=== PATIENT | female | born 1965 | race Caucasian/White ===

== ENCOUNTER → 2016-11-04 | Outpatient (REF) | payer OTHER | LOC: M LAB REF 17:07 | PROVIDERS: ATTEND Nurse Practitioner Family | DX: K12.2 Cellulitis and abscess of mouth (principal) ==

== ENCOUNTER 2017-04-29 15:16 | Emergency (ER) | payer OTHER ==
[~2017-04-29] VITALS: Ht 157.5 cm; Wt 61.4 kg
[2017-04-29 15:16] VITALS: BP 127/76
--- NOTE | 2017-04-29 15:56 | REP ---
CT Head without contrast HISTORY: Head injury COMPARISON: 07/30/2006 There is no intraparenchymal hemorrhage, acute infarct, mass or midline shift. The ventricular system is normal in appearance. There is no extra cerebral collection. There is no fracture. The visualized sinuses are clear. IMPRESSION: There is no intracranial lesion. Signed by Romero Silverman MD 04/29/2017 03:48 P
== END 2017-04-29 16:30 | disposition home or self-care (01) ==
LOC: M ED 15:16
DX: S00.93XA Contusion of unspecified part of head, initial encounter (principal); W50.0XXA Accidental hit or strike by another person, initial encounter; Y92.59 Other trade areas as the place of occurrence of the external cause; Y93.89 Activity, other specified; Y99.0 Civilian activity done for income or pay

== ENCOUNTER 2018-05-07 14:58 | Inpatient (IN) | payer OTHER ==
[2018-05-07 16:22] LABS: BASO % 0.5 % (0.0-1.0); EOS # 0.1 10^3/uL (0.0-0.50); EOS % 0.8 % (0.0-3.0); HEMATOCRIT 41.2 % (36.0-47.0); HEMOGLOBIN 13.7 g/dl (12.0-15.5); IMMATURE GRANULOCYTE % 0.3 % (0-3.0); LYMPH # 1.7 10^3/uL (1.5-4.5); LYMPH % 27.1 % (24.0-44.0); MEAN CORPUSCULAR HEMOGLOBIN 30.2 pg (27.0-33.0); MEAN CORPUSCULAR HGB CONC 33.3 g/dl (32.0-36.5); MEAN CORPUSCULAR VOLUME 90.7 fl (80.0-96.0); MONO # 0.4 10^3/uL (0.0-0.8); MONO % 6.3 % (0.0-5.0); NEUTROPHILS # 4.1 10^3/uL (1.8-7.7); PLATELET COUNT, AUTOMATED 256 10^3/uL (150-450); RED BLOOD COUNT 4.54 10^6/uL (4.00-5.40); RED CELL DISTRIBUTION WIDTH 12.4 % (11.5-14.5); WHITE BLOOD COUNT 6.2 10^3/uL (4.0-10.0)
[2018-05-07 16:25] LABS: INR 0.96; PARTIAL THROMBOPLASTIN TIME 26.1 SECONDS (25.4-37.6); PROTHROMBIN TIME 12.9 SECONDS (12.1-14.4)
[2018-05-07 16:28] LABS: CONTROL LINE HCG INT CTR LINE PRESENT; HCG, SERUM QUALITATIVE NEGATIVE (NEGATIVE)
[2018-05-07 16:35] LABS: ANION GAP 7 MEQ/L (8-16); BLOOD UREA NITROGEN 13 MG/DL (7-18); CALCIUM LEVEL 9.2 MG/DL (8.5-10.1); CARBON DIOXIDE LEVEL 30 MEQ/L (21-32); CHLORIDE LEVEL 109 MEQ/L (98-107); CK-MB VALUE MASS < 1.0 NG/ML (<3.6); CPK CREATINE PHOSPHOKINASE 75 U/L (26-192); GLOMERULAR FILTRATION RATE > 60.0 (>51); GLUCOSE, FASTING 112 MG/DL (70-100); MB/CK RELATIVE INDEX 1.33 (< OR =4); POTASSIUM SERUM 4.3 MEQ/L (3.5-5.1); SODIUM LEVEL 146 MEQ/L (136-145); TROPONIN I < 0.02 NG/ML (< 0.10)
[2018-05-07] MEDS: ASPIRIN 325 MG TAB PO (21:45)
[2018-05-07] MEDS: NS 1,000 ML IV (23:52)
[2018-05-07] MEDS: ATORVASTATIN 20 MG TAB PO (23:55)
[2018-05-08 05:33] LABS: ALBUMIN 3.5 GM/DL (3.2-5.2); ALKALINE PHOSPHATASE 57 U/L (45-117); ALT/SGPT 15 U/L (12-78); ANION GAP 7 MEQ/L (8-16); AST/SGOT 9 U/L (7-37); BILIRUBIN,TOTAL 0.4 MG/DL (0.2-1.0); BLOOD UREA NITROGEN 16 MG/DL (7-18); CALCIUM LEVEL 8.4 MG/DL (8.5-10.1); CARBON DIOXIDE LEVEL 28 MEQ/L (21-32); CHLORIDE LEVEL 110 MEQ/L (98-107); CREATININE FOR GFR 0.74 MG/DL (0.55-1.30); GLOMERULAR FILTRATION RATE > 60.0 (>51); GLUCOSE, FASTING 82 MG/DL (70-100); POTASSIUM SERUM 3.5 MEQ/L (3.5-5.1); SODIUM LEVEL 145 MEQ/L (136-145)
[2018-05-08] MEDS: ASPIRIN 81 MG CHEW TABLET PO (08:09)
[2018-05-08] MEDS: FLUBLOK(EGG FREE)(QUAD)INFLUENZA VACC 0.5ML SYRINGE (90682)18YRS&OLDER IM (08:11)
[2018-05-08] MEDS ORDERED: PROHANCE 279.3MG/ML 15ML VIAL (A9576) As Ordered (08:49)
[2018-05-08] MEDS: IBUPROFEN 800 MG TAB PO (14:17)
[2018-05-08] MEDS: ATORVASTATIN 20 MG TAB PO (20:22)
[2018-05-09] MEDS: ASPIRIN 81 MG CHEW TABLET PO (08:23)
[2018-05-09] MEDS ORDERED: SLF 3 ML SYR IV ×2 (09:45→14:00)
[2018-05-09 11:33] LABS: CHOLESTEROL LEVEL 218 MG/DL (<200); CHOLESTEROL RISK RATIO 3.516 (<5); HDL CHOLESTEROL 62 MG/DL (>40); LDL CHOLESTEROL 142 MG/DL (<100); NON-HDL-C 156 MG/DL; TRIGLYCERIDES LEVEL 68 MG/DL (<150)
== END 2018-05-09 10:57 | disposition home or self-care (01) | DRG 103 ==
LOC: M ED 14:58 → M ED INP 22:34 → M PCU 23:39
DX: G43.109 Migraine with aura, not intractable, without status migrainosus (principal); R42 Dizziness and giddiness; M62.81 Muscle weakness (generalized); R20.0 Anesthesia of skin; E78.5 Hyperlipidemia, unspecified; R55 Syncope and collapse

== ENCOUNTER → 2018-05-23 | Outpatient (REF) | payer OTHER ==
[2018-05-23 18:12] LABS: C REACTIVE PROTEIN QUANTITATIV < 0.30 MG/DL (0.00-0.30)
[2018-05-23 18:21] LABS: FOLATE 16.1 NG/ML; VITAMIN B12 LEVEL 727 PG/ML
[2018-05-23 18:25] LABS: ERYTHROCYTE SEDIMENTATION RATE 5 mm/hr (0-30)
[2018-05-26 00:56] LABS: ANTINUCLEAR ANTIBODIES DIRECT Negative (Negative); Lyme Disease IgG/IgM Antibodie <0.91 ISR (0.00-0.90); Lyme Disease IgM Ab Quantitati <0.80 index (0.00-0.79)
== END ==
LOC: M LAB REF 16:16
DX: R53.1 Weakness (principal); R42 Dizziness and giddiness; R73.09 Other abnormal glucose

== ENCOUNTER → 2019-02-05 | Outpatient (REF) | payer OTHER ==
[~2019-02-05] MED LIST: ASPI-286 PO; MOTR200T44 PO
== END ==
LOC: M LAB REF 12:40
PROVIDERS: ATTEND Internal Medicine
DX: R20.2 Paresthesia of skin (principal)

== ENCOUNTER 2019-07-10 19:54 | Emergency (ER) | payer OTHER ==
[~2019-07-10] VITALS: Ht 157.5 cm; Wt 60.0 kg
--- NOTE | 2019-07-10 20:49 | REP ---
Clinical: Trauma. Fall. Technique: AP, lateral, bilateral oblique views of the right wrist. Findings: Comminuted Colles' fracture of the distal radius and small ulnar styloid fracture is appreciated. Evaluation of the carpal bones is limited due to positioning. Impression: Comminuted Colles' fracture of the distal radius. Small ulnar styloid fracture. Electronically Signed by Adolfo Razo MD 07/10/2019 08:40 P
[2019-07-10] MEDS ORDERED: PERCOCET 5MG/325MG TAB PO ONE (21:00)
[2019-07-10] MEDS ORDERED: MORPHINE 4 MG/ML 1ML VIAL/SYRINGE (J2270) IM ONE (21:45)
[2019-07-10] MEDS ORDERED: PERC5TAB12 PO (22:30)
[2019-07-10] MEDS ORDERED: OXYCODONE/APAP 5MG/325MG(BULK FOR ED) 1 TABLET PO ONE (22:30)
[2019-07-10 22:40] VITALS: BP 116/55
--- NOTE | 2019-07-10 23:19 | REPVR ---
PROCEDURE INFORMATION: Exam: CT Right Upper Extremity Without Contrast, Wrist Exam date and time: 07/10/2019 10:29 PM Age: 54 years old Clinical indication: Injury or trauma; Fall; Initial encounter; Blunt trauma (contusions or hematomas; Wrist; Right; Additional info: CT right wrist without TECHNIQUE: Imaging protocol: CT of the Right upper extremity without contrast was performed. Exam focused on the wrist. Radiation optimization: All CT scans at this facility use at least one of these dose optimization techniques: automated exposure control; mA and/or kV adjustment per patient size (includes targeted exams where dose is matched to clinical indication); or iterative reconstruction. COMPARISON: CR Wrist, complete 07/10/2019 8:16 PM FINDINGS: Bones/joints: Comminuted fracture distal radius. There is dorsal tilting of the distal fracture parts. Fracture ulnar styloid. Soft tissues: Diffuse soft tissue edema about the fractures. IMPRESSION: 1. Comminuted fracture distal radius. There is dorsal tilting of the distal fracture parts. 2. Fracture ulnar styloid. Electronically signed by: Daniel Huitron On 07/10/2019 23:19:23 PM
[2019-07-13] MEDS ORDERED: MULTCAP PO (13:30)
[2019-07-13] MEDS ORDERED: tylenol pm PO (13:40)
== END 2019-07-10 22:42 | disposition home or self-care (01) ==
LOC: M ED 19:54
DX: S52.531A Colles' fracture of right radius, initial encounter for closed fracture (principal); S52.614A Nondisplaced fracture of right ulna styloid process, initial encounter for closed fracture; V00.281A Fall from other gliding-type pedestrian conveyance, initial encounter; Y92.89 Other specified places as the place of occurrence of the external cause
CPT/HCPCS: 29125; 73110; 73200; 96372; 99283; J2270

== ENCOUNTER 2019-07-16 11:40 | Day surgery (SDC) | payer OTHER ==
[~2019-07-16] VITALS: Ht 157.5 cm; Wt 61.6 kg
[~2019-07-16 11:40] MED LIST changes: +LIDOCAINE 1% MDV 20ML VIAL SQ PRN; +LR 1,000 ML IV ONE; +MULTCAP PO; +PERC5TAB12 PO; +ceFAZolin SOD 2 GM in IV 1 EA IV ONE; +tylenol pm PO
[2019-07-16] MEDS ORDERED: ROPIvacaine 0.5% 30 ML INJECTION (J2795 PER 1MG) ONE (11:41)
[2019-07-16] MEDS ORDERED: dexameTHASONE 10 MG/1 ML VIAL PRES.FREE (J1100) ONE (11:41)
[2019-07-16] MEDS ORDERED: ROCURONIUM BROMIDE 50 MG/5 ML VIAL As Ordered ONE (12:19)
[2019-07-16] MEDS ORDERED: LIDOCAINE 2% INJ 100 MG/5 ML SDV (FOR ANES.) As Ordered ONE (12:19)
[2019-07-16] MEDS ORDERED: PROPOFOL 200 MG/20 ML VIAL As Ordered ONE (12:19)
[2019-07-16] MEDS ORDERED: fentaNYL 250 MCG/5 ML INJECTION (J3010) As Ordered ONE (12:20)
[2019-07-16] MEDS ORDERED: MIDAZOLAM INJ 2 MG/2 ML VIAL (J2250) As Ordered ONE ×2 (12:20→12:37)
[2019-07-16] MEDS ORDERED: fentaNYL 100 MCG/2 ML INJECTION (J3010) As Ordered ONE (12:37)
[2019-07-16] MEDS ORDERED: SCOPOLAMINE 1MG TRANSDERMAL PATCH As Ordered ONE (12:45)
[2019-07-16] MEDS: MIDAZOLAM INJ 2 MG/2 ML VIAL (J2250) IV SCH ×2 (12:52→12:54)
[2019-07-16] MEDS ORDERED: SCOPOLAMINE 1MG TRANSDERMAL PATCH TOP ONE (13:00)
[2019-07-16] MEDS ORDERED: fentaNYL 100 MCG/2 ML INJECTION (J3010) IV ONE (13:30)
[2019-07-16] MEDS ORDERED: dexameTHASONE 4 MG/ML 1ML VIAL (J1100) As Ordered ONE (14:05)
[2019-07-16] MEDS ORDERED: ONDANSETRON 4MG/2ML VIAL (J2405) As Ordered ONE ×2 (14:05→15:34)
[2019-07-16] MEDS ORDERED: ACETAMINOPHEN *IV* 1,000 MG IV ONE ×2 (15:32)
[2019-07-16] MEDS ORDERED: ACETAMINOPHEN 1000MG 100ML IV BTL (OFIRMEV) (J0131 PER 10MG) As Ordered ONE (15:34)
[2019-07-16] MEDS: fentaNYL 100 MCG/2 ML INJECTION (J3010) IV PRN ×4 (15:35→15:50)
--- NOTE | 2019-07-16 15:57 | REP ---
Right wrist: Two views intra. History: ORIF. 86 seconds of fluoroscopy time is reported. Findings: A sequence of two last image hold fluoroscopically obtained spot radiographs of the right distal forearm and wrist document open reduction internal fixation of the distal radius. Electronically Signed by Gurmeet Wallace MD 07/16/2019 03:48 P
[2019-07-16] MEDS ORDERED: MORPHINE 10 MG/ML 1ML VIAL (J2270) As Ordered ONE (15:59)
[2019-07-16] MEDS: MORPHINE 2 MG/ML 1ML VIAL (J2270) IV PRN ×4 (16:00→16:30)
[2019-07-16] MEDS: LR 1,000 ML IV SCH ×2 (16:00→23:46)
[2019-07-16] MEDS ORDERED: ONDANSETRON 4MG/2ML VIAL (J2405) IV PRN ×2 (16:00)
[2019-07-16] MEDS ORDERED: ACETAMINOPHEN TAB 650MG DOSE (2X325MG) PO PRN (16:00)
[2019-07-16] MEDS ORDERED: MORPHINE 2 MG/ML 1ML VIAL (J2270) IV PRN (16:00)
[2019-07-16] MEDS ORDERED: LR 1,000 ML IV SCH (16:00)
[2019-07-16] MEDS ORDERED: METOCLOPRAMIDE INJ 10MG/2ML VIAL (J2765) As Ordered ONE (16:04)
[2019-07-16] MEDS ORDERED: METOCLOPRAMIDE INJ 10MG/2ML VIAL (J2765) IV SCH (16:30)
[2019-07-16] MEDS ORDERED: PROMETHAZINE INJ 25 MG/ML VIAL (J2550) As Ordered ONE (17:35)
--- NOTE | 2019-07-16 17:35 | RO ---
DATE OF PROCEDURE: 07/16/2019 PREOPERATIVE DIAGNOSIS: Right distal radius fracture. POSTOPERATIVE DIAGNOSIS: Right distal radius fracture. PLANNED PROCEDURE: Right distal radius open reduction internal fixation. PROCEDURE PERFORMED: Right distal radius open reduction internal fixation. SURGEON: Dr. Matt Powers ELECTRICIAN MANAGER: Xiomara Calero. ANESTHESIA: Dr. Aragon general anesthetic plus block. OPERATIVE PREAMBLE: This 54-year-old female fell on a hover board. She sustained a comminuted right distal was fracture. The talked about the pros, cons and risks and benefits of going ahead with open reduction internal fixation versus nonsurgical management and she wished to go ahead with surgery. I reiterated these risk preoperative holding and removed the splint and marked her right upper extremity and we proceeded with surgery. The patient was brought to operating room 3 theater. Two grams IV Ancef was administered. She was placed supine on the operating room table with arm table to the right side. 18 inches tourniquet was applied and appropriately padded. SCDs were used. All bony prominences were properly padded. General anesthesia was induced. Two grams IV Ancef was administered prior to the start of the skin incision. The bed was turned 90 degrees and operative mini C-arm was utilized. Preop time-out was performed confirming the side, patient and surgery. Limb was prepped and draped the usual sterile fashion along ample time of 3 minutes for the prep solution to thoroughly dry. Sterile Esmarch was used to exsanguinate the limb. Limb was elevated and tourniquet was inflated to 250 mmHg. Tourniquet was taken down prior to the end of the case. Total tourniquet time approximately 60 minutes. We began by making a 4 inch incision centered over the FCR to the right wrist. the right wrist.. This dissection down skin saphenous tissue to put it to meticulous hemostasis. The fascia overlying the FCR retracted laterally. Mobilized muscle belly of FPL. Protected the radial neurovascular bundle throughout the case. I used a periosteal elevator to elevate the muscle belly from the volar aspect of the distal radius proximally as well as distally over the fracture site. I identified at least three fragments. One being the most radial side as well as the radial styloid and two intraarticular fragments as well as dorsal comminution. I used finger traps with 10 pounds of traction. A small bump put under the dorsal side of the distal radius, I rolled up a green towel to achieve proper reduction. Took intraoperative AP, lateral, and true lateral 30 degree tilt views. I selected 3 hole proximal [employer] volar distal radius fracture plate. I secured this down to bone with 1.6 mm K-wires. Fluoroscopy to ensure this probably positioned. Secured it down to bone using a 2.7 mm fully-threaded cortical screw. This measured 14 mm. Secured the plate nicely down to the bone. Then used a little bit of more traction and manual manipulation as well as ulnar deviation of the wrist and dorsal pressure to achieve reduction. I temporarily pinned this in place. The direction appeared nicely out to length in the articular surface. It was congruent with normal radial inclination. As such I into the distal 2.4 mm variable locking screws. I used three 20 mm long and three 22 mm long screws for six screw holes. I took a true lateral 30 degree tilt to ensure that they were out of the joint. I then filled the remaining two screws proximally with two 12 mm cortical 2.7 mm non-locking screws. I took final radiographs. Reduction appeared good. The hardware still has some comminution. Wounds thoroughly irrigated. Tourniquet taken down. Hemostasis achieved. Subcutaneous tissue was closed with interrupted 3-0 Vicryl. Skin was closed with running 3-0 Monocryl. Steri-strips were applied followed by adaptic, 4 x 8 gauze and ABD dressing was overwrapped with sterile cast padding. A volar plaster splint and overwrapped sterile FRANKIE bandage The patient woken up from general anesthetic. Sponge, needle, instruments counts were correct. ESTIMATED BLOOD LOSS: 100 mL. PLAN: The patient will be nonweightbearing upper extremity and start finger range of motion. Change the splint in 2 weeks. See me in followup in the clinic. Prescription be sent to the pharmacy of choice electronically. She may be discharged home according to the day surgery criteria. I spoke with her , Wolf after the procedure. I told him about the plan and encouraged him to let Rae know to elevate her upper extremity.
[2019-07-16] MEDS ORDERED: PERCOCET 5MG/325MG TAB PO ONE (18:00)
[2019-07-16] MEDS ORDERED: PROMETHAZINE INJ 25 MG/ML VIAL (J2550) IV ONE (18:00)
[2019-07-16 20:00] VITALS: BP 105/50
[2019-07-16 20:40] VITALS: BP 115/70
[2019-07-16 21:40] VITALS: BP 102/68
[2019-07-16 22:40] VITALS: BP 110/67
[2019-07-16 23:40] VITALS: BP 106/70
[2019-07-17] MEDS: PERCOCET 5MG/325MG TAB PO PRN ×2 (03:51→08:27)
[2019-07-17] MEDS ORDERED: PERC5TAB12 PO (05:47)
--- NOTE | 2019-07-17 07:36 | IPN ---
DATE: 07/17/2019 CHIEF COMPLAINT: Postoperative day one right wrist open reduction internal fixation. HISTORY OF PRESENT ILLNESS: This is a 54-year-old female who had a right wrist fracture. I performed ORIF yesterday afternoon. She is experiencing high levels of pain so she elected to stay overnight. This morning, she is comfortable. She did take one oral Percocet. Otherwise, she is feeling comfortable. PHYSICAL EXAMINATION: Well appearing, 54-year-old female who appears in no acute distress. Decreased sensation to the fingers. Had a block, but the fingers are warm and well perfused. Splint is in situ. Ice bag is in place. Arm is elevated appropriately. ASSESSMENT AND PLAN: This is a 54-year-old female who can be discharged home today when she is comfortable. Prescription is called into her pharmacy. Followup in the office within a few days if she wishes to debulk the dressing, otherwise followup in two weeks time. JOE
== END 2019-07-17 09:00 | disposition home or self-care (01) ==
LOC: M SDC 11:40 → M MS5PR 19:52 → M SDC 07-17 09:00
PROVIDERS: ATTEND Orthopaedic Surgery Sports Medicine
DX: S52.501A Unspecified fracture of the lower end of right radius, initial encounter for closed fracture (principal); V00.181A Fall from other rolling-type pedestrian conveyance, initial encounter; Y92.89 Other specified places as the place of occurrence of the external cause; Y93.89 Activity, other specified; Y99.9 Unspecified external cause status; F41.9 Anxiety disorder, unspecified
CPT/HCPCS: 25609; 64418; 76000; 81025; 96374; C1713; J0131; J0690; J1100; J2250; J2270; J2405; J2765; J2795; J3010

== ENCOUNTER → 2019-12-19 | Outpatient (REF) | payer OTHER ==
[~2019-12-19] MED LIST changes: -LIDOCAINE 1% MDV 20ML VIAL SQ PRN; -LR 1,000 ML IV ONE; -ceFAZolin SOD 2 GM in IV 1 EA IV ONE
[2019-12-19 16:55] LABS: C REACTIVE PROTEIN QUANTITATIV < 0.30 MG/DL (0.00-0.30); LIPASE 448 U/L (73-393)
== END ==
LOC: M LAB REF 13:49
PROVIDERS: ATTEND Internal Medicine
DX: R10.9 Unspecified abdominal pain (principal); R19.7 Diarrhea, unspecified

== ENCOUNTER → 2020-01-04 | Outpatient (REF) | payer OTHER | LOC: M LAB REF 16:41 | PROVIDERS: ATTEND Internal Medicine | DX: R19.7 Diarrhea, unspecified (principal); R10.9 Unspecified abdominal pain ==

== ENCOUNTER → 2020-06-25 | Outpatient (CLI) | payer SELFPAY | LOC: M LABSMTC 09:39 | PROVIDERS: ATTEND Pediatrics | DX: Z20.828 Contact with and (suspected) exposure to other viral communicable diseases (principal) ==

== ENCOUNTER → 2020-07-15 | Outpatient (CLI) | payer SELFPAY | LOC: M LABSMTC 13:21 | PROVIDERS: ATTEND Pediatrics | DX: Z20.822 Contact with and (suspected) exposure to COVID-19 (principal) ==

== ENCOUNTER → 2020-08-03 | Outpatient (CLI) | payer OTHER, SELFPAY ==
[~2020-08-03] MED LIST changes: +MELA3TAB30 PO; +VITMTA PO
== END ==
LOC: M LABSMTC 08:11
PROVIDERS: ATTEND Anesthesiology
DX: Z01.812 Encounter for preprocedural laboratory examination (principal); Z20.822 Contact with and (suspected) exposure to COVID-19

== ENCOUNTER 2020-08-08 07:25 | Day surgery (SDC) | payer OTHER ==
[~2020-08-08] VITALS: Ht 157.5 cm; Wt 57.6 kg
[~2020-08-08 07:25] MED LIST changes: +LIDOCAINE 2% 100MG/5ML SDV (FOR ANES.) As Ordered ONE; +propofoL 200 MG/20 ML VIAL As Ordered ONE
--- OUTSIDE RECORDS SUMMARY | 2020-08-08 07:29 | CCD | Continuity of Care Document ---
Author Author Rae Ware M.D. Organization Unknown Address [address] [place] [address] Phone [phone] Care Team Providers Care Admissions Coordinator Name Role Phone Aguirre, Eula CORRALES AUTM [phone] Zo Ware MD AUTM [phone] Problems Active Problems Provider Date Keila Crandall FNP Onset: 04/11/2011 Vitamin D deficiency Zo Ware M.D. Onset: 04/11/20 11 Migraine with typical aura Zo Ware M.D. Onset: Social History Type Date Description Comments Sex Unknown ETOH Use Occasionally consumes alcohol Tobacco Use Start: Unknown Patient has never smoked Allergies, Adverse Reactions, Alerts Description No Known Drug Allergies Medications Active Medications SIG Qnty Indications Ordering Provide r Date Metamucil 28.3% Powder 1-2 tablespoon every morning as tolerated 1150gm Celeste Napoles 04/23/2020 Bone Health qd Zo Ware M.D. 04/23/2020 Ibu-200 200mg Tablets 3 three times a day as needed head ache Zo Ware M.D. 05/11 Saline Nasal [place] 0.65% Solution 3-4x/d as directed 1units Zo Ware M.D. 05/22/20 19 [place] 3 500 500mg Capsules ev sylvie day Zo Ware M.D. 02/05/2019 Vitamin D 2000Unit Capsules 1 po qd Zo Ware M.D. 07/27/2013 MV-One Capsules qd 90caps Zo Ware M.D. 04/15/2011 Valtrex 1gm Tabs take 2 tablets by mouth two times a day for 1 day 30tabs Otto Napoles 10/16/2007 Probiotic Capsules 1 by mouth every day Unknown Medications Administered in Office Medication SIG Qnty Indications Ordering Provider Date Immunization Adminstration,1 Vaccine/Tox oid Injection Zo Ware M.D. 04/10 Immunization Adminstration,1 Vaccine/Tox oid Injection Zo Ware M.D. 05/11 Immunizations CPT Code Status Date Vaccine Lot # [id number] Given 04/23/2020 Influenza Vaccin e Quadrivalent Preser/Antibiotic Free Im Use [id number] Given 05/22/2019 Influenza Vaccin e Quadrivalent Preser/Antibiotic Free Im Use 995639 U-Flu Given 05/08/2018 Influenza,Unspecified Q2037 Given 04/30/2014 Fluvirin Virus Vaccine [id number] 21 Q2037 Given 07/23/2013 Fluvirin Virus Vaccine [id number] 01 Q2037 Refused 04/15/2011 Fluvirin Virus Vaccine Vital Signs Date Vital Result Comment 04/23/2020 11:07am BP Systolic 110 mmHg BP Diastolic 72 mmHg Heart Rate 64 /min Height 61.75 inches 5'1.75" Weight 128.00 lb BMI (Body Mass Index) 23.6 kg/m2 01/22/2020 2:34pm BP Systolic 120 mmHg BP Diastolic 68 mmHg Heart Rate 67 /min Height 61.75 inches 5'1.75" Weight 134.00 lb O2 % BldC Oximetry 95 % BMI (Body Mass Index) 24.7 kg/m2 Results Test Acquired Date Facility Test Result H/L Range Note Coronavirus 2018 ([facility]) 06/25/[address] [id number] [phone] Coronavirus 2018 ([facility]) <SEE NOTE> 1 Laboratory test finding 01/22/2020 [facility] [address] [place], [place] [id number] [phone] Lipase 356 U/L Normal 73-393 Laboratory test finding 01/04/2020 [place] [id number] [phone] Tissue Transglutaminase IgA <2 U/mL Normal 0-3 2 Immunoglobulin A 128.0 mg/dL Normal 70-400 1 Test: COVID-19 Nasal/Naspharynx Result: NOT DETECTED Reference Units: Not detected Note: Please consider re-collection of a new specimen, if clinically indicated. Note: The COVID-19 assay is under Emergency Use Authorization(EUA) by the U.S. Food and Drug Administration. [facility] is designated as a high complexity laboratory by the Clinical Laboratory Improvement Amendments of 1988(CLIA) and is qualified to perform this test. ASSAY INFORMATION: Real Time RT-PCR 2 Negative 0 - 3 Weak Positive 4 - 10 Positive >10 . Tissue Transglutaminase (tTG) has been identified as the endomysial antigen. Studies have demonstr- ated that endomysial IgA antibodies have over 99% specificity for gluten sensitive enteropathy. Performed at: RN - [facility] [address] [id number] Administration Physician: Leny Sierra MD, Phone: [phone] Procedures Date Code Description Status 04/10/2020 [id number] Mammogram Completed 03/02/2018 [id number] Mammogram Completed 02/15/2017 [id number] Mammogram Completed 11/26/2015 [id number] Mammogram Completed 04/21/2015 [id number] Colonoscopy Completed 10/01/2013 [id number] Mammogram Completed 09/13/2012 [id number] Mammogram Completed 11/26/2011 [id number] Colonoscopy Completed 2011 [id number] Mammogram Completed 05/27/2010 [id number] Mammogram Completed 12/15/2004 [id number] Colonoscopy Completed Medical Devices Description No Information Available Encounters Type Date Location Provider Dx Diagnosis Office Visit 04/23/2020 10:45a [facility], PRachaelCRachael Ware M.D. Z00.00 Encntr for general adult med ical exam w/o abnormal findings K58.2 Mixed irritable bowel syndro me M85.80 Oth disrd of bone density an d structure, unspecified site M25.531 Pain in right wrist G47.00 Insomnia, unspecified B00.1 Herpesviral vesicular dermat itis Z80.3 Family history of malignant neoplasm of breast Z80.0 Family history of malignant neoplasm of digestive organs N95.1 Menopausal and female climac teric states Z23 Encounter for immunization Office Visit 01/22/2020 2:30p [facility] M.[facility] K30 Functional dyspepsia G90.50 Complex regional pain syndro me I, unspecified G43.909 Migraine, unsp, not intracta ble, without status migrainosus N95.1 Menopausal and female climac teric states Assessments Date Code Description Provider 04/23/2020 Z00.00 Encounter for genera l adult medical examination without abnormal findings Zo Ware M.D. 04/23/2020 K58.2 Mixed irritable bowel syndrome Sharonda Ware M.D. 04/23/2020 M85.80 Other specified diso rders of bone density and structure, unspecified site Zo Ware M.D. 04/23/2020 M25.531 Pain in right wrist Zo rodarte M.D. 04/23/2020 G47.00 Insomnia, unspecified Zo espinoza M.D. 04/23/2020 B00.1 Herpesviral vesicular dermatitis Zo Ware M.D. 04/23/2020 Z80.3 Family history of malignant neop lasm of breast Zo Ware M.D. 04/23/2020 Z80.0 Family history of malignant neop lasm of digestive organs Zo Ware M.D. 04/23/2020 N95.1 Menopausal and female climacteri c states Zo Ware M.D. 04/23/2020 Z23 Encounter for immunization Zo Ware M.D. 01/22/2020 K30 Functional dyspepsia Zo Brand M.D. 01/22/2020 G90.50 Complex regional pain syndrome I , unspecified Zo Ware M.D. 01/22/2020 G43.909 Migraine, unspecifie d, not intractable, without status migrainosus Zo Ware M.D. 01/22/2020 N95.1 Menopausal and female climacteri c states Zo Ware M.D. 01/04/2020 R19.7 Diarrhea, unspecified Zo espinoza M.D. 01/04/2020 R19.7 Diarrhea, unspecified [facility] 01/04/2020 R10.9 Unspecified abdominal pain Zo Ware M.D. 01/04/2020 R10.9 Unspecified abdominal pain Lab S chedule Plan of Treatment Future Appointment(s):* 08/25/2020 11:00 am - Zo [facility] M.D. at [facility] 04/23/2020 - Zo Ware M.D.* Z00.00 Encounter for general adult medical examination without abnormal findings * K58.2 Mixed irritable bowel syndrome * M85.80 Other specified disorders of bone density and structure, unspecified site * M25.531 Pain in right wrist * G47.00 Insomnia, unspecified * B00.1 Herpesviral vesicular dermatitis * Z80.3 Family history of malignant neoplasm of breast * Z80.0 Family history of malignant neoplasm of digestive organs * N95.1 Menopausal and female climacteric states * Z23 Encounter for immunization * All * New Medication:* Metamucil 28.3 % - 1-2 tablespoon every morning as tolerated * Bone Health - qd * Comments:* 9. Post concussive syndrome. Question how many of her symptoms are related to perimenopause. Following with Dr. Bermudez.10. Varicose veins. Conservative advice.11. Migraines. Stable.12. Health maintenance. Flu shot is administered today. Colonoscopy is about to be done. She just had her mammogram, bone density and I'm requesting these. 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 Her Adacel was 2013. Diet/exercise, Calcium, BSE reviewed. Functional Status Description No Information Available Mental Status Description No Information Available Referrals Description No Information Available
--- OUTSIDE RECORDS SUMMARY | 2020-08-08 07:29 | CCD | Continuity of Care Document ---
Author Author Rae Ware M.D. Organization Unknown Address [address] [place] [address] Phone [phone] Care Team Providers Care Banquet Houseperson Name Role Phone Aguirre, Eula CORRALES AUTM [phone] Zo Ware MD AUTM [phone] Problems Active Problems Provider Date Keila Crandall [...] ache Zo Ware M.D. 05/11 Saline Nasal [place] 0.65% Solution 3-4x/d as directed 1units Zo Ware M.D. 05/22/20 19 [place] 3 500 500mg Capsules ev sylvie day [...] CPT Code Status Date Vaccine Lot # 45613 Given 04/23/2020 Influenza Vaccin e Quadrivalent Preser/Antibiotic Free Im Use [id number] 74511 Given 05/22/2019 Influenza Vaccin e Quadrivalent Preser/Antibiotic Free Im Use 266902 U-Flu Given 05/08/2018 Influenza,Unspecified Q2037 Given 04/30/2014 Fluvirin Virus Vaccine 61887 21 Q2037 Given 07/23/2013 Fluvirin Virus Vaccine 45444 01 Q2037 Refused 04/15/2011 Fluvirin Virus Vaccine [...] Date Facility Test Result H/L Range Note Laboratory test finding 01/22/2020 [facility] [address] [place] [address] [phone] Lipase 356 U/L Normal 73-393 Laboratory test finding 01/04/2020 [facility] [address] [place] [address] [phone] Tissue Transglutaminase IgA <2 U/mL Normal 0-3 1 Immunoglobulin A 128.0 mg/dL Normal 70-400 Gastrointestinal (GI) Panel 12/19/2019 [facility] [address] [place] [address] [phone] Gastrointestinal (GI) Panel This Gastrointes <SEE NOTE > 2 Laboratory test finding 12/19/2019 [facility] [address] [place], [place] [id number] [phone] C Reactive Protein Quantitativ < 0.30 mg/dL Normal 0.00-0.30 Lipase 448 U/L High 73-393 Complete Blood Count 12/19/2019 [facility] [employer] [facility] Mud Grinder: [place] [address] [phone] WBC 4.2 x10*3/UL 4.1 - 10.9 RBC 4.49 x10*6/UL 4.20 - 6.30 Hemoglobin 13.6 g/dL 12.0 - 18.0 Hematocrit 39.6 % 37.0 - 51.0 MCV 88.3 fL 80.0 - 97.0 MCH 30.4 pg 26.0 - 32.0 MCHC 34.4 g/dL 31.0 - 38.0 RDW 12.6 % 11.6 - 13.7 PLT 241 x10*3/UL 140 - 440 MPV 9.3 FL 7.8 - 11.0 Lymph % 41.0 % 10.0 - 58.5 Mid % 9.6 % High 1.7 - 9.3 Neut % 49.4 % 37.0 - 92.0 Lymph # 1.7 x10*3/UL 0.6 - 4.1 Mid # 0.4 x10*3/UL 0.1 - 0.6 Neut # 2.1 x10*3/UL 2.0 - 7.8 Laboratory test finding 12/19/2019 [place] [employer] sandra lopez Mud Grinder: [place] [address] [phone] Sed Rate 7 mm/hr 0 - 15 Magnesium 2.2 mg/dL 1.8 - 2.4 Comprehensive Chem Profile 12/19/2019 [facility] ortiz Mud Grinder: [place] [address] [phone] Glucose 91 mg/dL 74 - 99 3 BUN 22 mg/dL High 7 - 18 Creatinine 0.8 mg/dL 0.6 - 1.3 Sodium 142 mEq/L 136 - 145 Potassium 4.2 mEq/L 3.5 - 5.1 Chloride 105 mEq/L 98 - 107 Carbon Dioxide 29 mEq/L 21 - 32 Calcium 9.1 mg/dL 8.5 - 10.1 Alk. Phosphatase 69 mg/dL 46 - 116 Total Bilirubin 0.6 mg/dL 0.2 - 1.0 Ast (Sgot) 12 U/L Low 15 - 37 Alt (SGPT) 19 U/L 12 - 78 Albumin 4.2 g/dL 3.4 - 5.0 Total Protein 7.4 g/dL 6.4 - 8.2 A/G Ratio 1.31 CALC 1.00 - 1.90 GFR >= 60 mL/min >60 GFR >= 60 mL/min >60 4 Laboratory test finding 12/19/2019 [facility] [employer] [facility] Mud Grinder: [place] [address] [phone] Thyroid Stimulating Hormone 1.40 uIU/mL 0.3 6 - 3.74 1 Negative 0 - 3 Weak Positive 4 - 10 Positive >10 . Tissue Transglutaminase (tTG) has been identified as the endomysial antigen. Studies have demonstr- ated that endomysial IgA antibodies have over 99% specificity for gluten sensitive enteropathy. Performed at: [facility] [address] [id number] Mud Grinder: Leny Sierra MD, Phone: [phone] 2 This Gastrointestinal PCR Pa paty detects the following bacteria, parasites and viruses: Campylobacter (jejuni, coli and upsaliensis), Clostridium difficile (toxin A/B), Plesiomonas shigelloides, Salmonella, Yersinia enterocolitica, Vibrio (parahaemolyticus, vulnificus and cholerae), Vibrio clolerae, Enteroaggregative E. coli (EAEC), Enteropathogenis E. coli (EPEC), Enterotoxigenic E. coli (ETEC) it/st, Shiga-like producing E. coli (STEC) stx1/stc2, E.coli O157, Shigella/Enteroinvasive E. coli (EIEC), Cryptosporidium, Cyclospora cayetanensis, Entamoeba histolytica, Giardia lamblia, Adenovirus F 40/41, Astrovirus, Norovirus GI/GII, Rotavirus A and Sapovirus (I, II, IV, V). NEGATIVE by MULTIPLEXED NUCLEIC ACID PCR 3 100-125 mg/dL PRE-DIABET ES/FASTING >126 mg/dL DIABETES/FASTING 4 CHRONIC KIDNEY DISEASE STAGI NG PER NKF STAGE I & II GFR >= 60 NORMAL TO MILDLY DECREASED STAGE III GFR 30-59 MODERATELY DECREASED STAGE IV GFR 15-29 SEVERELY DECREASED STAGE V GFR <15 VERY LITTLE GFR LEFT ESRD GFR <15 ON RESCUE INSTRUCTOR Procedures Date Code Description Status 04/10/2020 [id number] Mammogram Completed 03/02/2018 [id number] Mammogram Completed 02/15/2017 [id number] Mammogram Completed 11/26/2015 [id number] Mammogram Completed 04/21/2015 [id number] Colonoscopy Completed 10/01/2013 [id number] Mammogram Completed 09/13/2012 [id number] Mammogram Completed 11/26/2011 [id number] Colonoscopy Completed 2011 [id number] Mammogram Completed 05/27/2010 [id number] Mammogram Completed 12/15/2004 [id number] Colonoscopy Completed Medical Devices Description No Information Available Encounters Type Date Location Provider Dx Diagnosis Office Visit 04/23/2020 10:45a [facility] P.CRachael Ware M.D. Z00.00 Encntr for general adult [...] Encounter for immunization Office Visit 01/22/2020 2:30p [facility].CR[facility]ael Ware M.D. K30 Functional dyspepsia G90.50 Complex regional pain syndro me I, unspecified G43.909 Migraine, unsp, not intracta ble, without status migrainosus N95.1 Menopausal and female climac teric states Office Visit 12/19/2019 11:15a [facility] oJe Ware M.D. R10.9 Unspecified abdominal pain R19.7 Diarrhea, unspecified Assessments Date Code Description Provider 04/23/2020 Z00.00 Encounter for genera l adult medical examination without abnormal findings Zo Ware M.D. 04/23/2020 K58.2 Mixed irritable bowel syndrome J enoc Ware M.D. 04/23/2020 M85.80 Other specified diso [...] R10.9 Unspecified abdominal pain Lab S chedule 12/19/2019 R10.9 Unspecified abdominal pain Zo Ware M.D. 12/19/2019 R19.7 Diarrhea, unspecified Zo espinoza M.D. Plan of Treatment Future Appointment(s):* 08/25/2020 11:00 am - Zo Ware [facility]. at [facility] 04/23/2020 - Zo Ware [...] requesting these. 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 Her Adacel was 2013. Diet/exercise, Calcium, BSE reviewed. Functional Status Description No Information Available Mental Status Description No Information Available Referrals Refer to Reason for Referral Status Appt Date Telly Ibrahim MD CONSULT FOR ABD PAIN, CHANGE IN BOWELS, PT IS SCHEDULED FOR CT ABD/PELVIS AT [facility] ON 12/27/19 PLEASE SCHEDULE KAREN.PER DR WARE Sent [facility] Medical Practice [address] [address] [phone]
--- OUTSIDE RECORDS SUMMARY | 2020-08-08 07:29 | CCD | Continuity of Care Document ---
Author Author Rae Ware M.D. Organization Unknown Address [address] [place] [id number] Phone [phone] Care Team Providers Care Mud Analysis Well Logging Captain Name Role Phone Aguirre, Eula ANTONI AUTM [phone] Zo Ware MD AUTM [phone] Problems Active Problems Provider Date Keila Crandall [...] ache Zo Ware M.D. 05/11 Saline Nasal [place] 0.65% Solution 3-4x/d as directed 1units Zo Ware M.D. 05/22/20 19 [place] 3 500 500mg Capsules ev sylvie day [...] CPT Code Status Date Vaccine Lot # [id number] Given 04/23/2020 Influenza Vaccin e Quadrivalent Preser/Antibiotic Free Im Use [id number] Given 05/22/2019 Influenza Vaccin e Quadrivalent Preser/Antibiotic Free Im Use 138251 U-Flu Given 05/08/2018 Influenza,Unspecified Q2037 Given 04/30/2014 Fluvirin Virus Vaccine 41256 21 Q2037 Given 07/23/2013 Fluvirin Virus Vaccine 85567 01 Q2037 Refused 04/15/2011 Fluvirin Virus Vaccine [...] Test Result H/L Range Note Coronavirus 2018 ([facility]) 07/15/[address] [address] [phone] Coronavirus 2019 ([facility]) <SEE NOTE> 1 Coronavirus 2019 ([facility]) 06/25/[address] [address] [phone] Coronavirus 2019 ([facility]) <SEE NOTE> 2 Laboratory test finding 01/22/[address] [address] [phone] Lipase 356 U/L Normal 73-393 1 Test: COVID-19 Nasal/Naspharynx Result: NOT DETECTED Reference Units: Not detected Note: Please consider re-collection of a new specimen, if clinically indicated. Note: The COVID-19 assay is under Emergency Use Authorization(EUA) by the U.S. Food and Drug Administration. [facility] is designated as a high complexity laboratory by the Clinical Laboratory Improvement Amendments of 1988(CLIA) and is qualified to perform this test. ASSAY INFORMATION: Real Time RT-PCR 2 Test: COVID-19 Nasal/Naspharynx Result: NOT DETECTED Reference Units: Not detected Note: Please consider re-collection of a new specimen, if clinically indicated. Note: The COVID-19 assay is under Emergency Use Authorization(EUA) by the U.S. Food and Drug Administration. [facility] is designated as a high complexity laboratory by the Clinical Laboratory Improvement Amendments of 1988(CLIA) and is qualified to perform this test. ASSAY INFORMATION: Real Time RT-PCR Procedures Date Code Description Status 04/10/2020 [id number] Mammogram Completed 03/02/2018 [id number] Mammogram Completed 02/15/2017 [id number] Mammogram Completed 11/26/2015 [id number] Mammogram Completed 04/21/2015 [id number] Colonoscopy Completed 10/01/2013 [id number] Mammogram Completed 09/13/2012 [id number] Mammogram Completed 11/26/2011 [id number] Colonoscopy Completed 2011 [id number] Mammogram Completed 05/27/2010 [id number] Mammogram Completed 12/15/2004 [id number] Colonoscopy Completed Medical Devices Description No Information Available Encounters Type Date Location Provider Dx Diagnosis Office Visit 04/23/2020 10:45a [facility] Joe Ware M.D. Z00.00 Encntr for general adult [...] Encounter for immunization [facility] 2[facility] K30 Functional dyspepsia G90.50 [...] female climacteri c states Zo Ware M.D. Plan of Treatment Future Appointment(s):* 08/25/2020 11:00 am - Zo Ware M.D. at [facility] 04/23/2020 - Zo Ware M.D.* Z00.00 [...] requesting these. She sees Dr. Bermudez for [employer] SUPER[employer]OR care. Her Adacel was 2013. Diet/exercise, Calcium, BSE reviewed. Functional Status Description No Information Available Mental Status Description No Information Available Referrals Description No Information Available
--- OUTSIDE RECORDS SUMMARY | 2020-08-08 07:30 | CCD ---
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 Name Role Phone Lonny Ware MD Unavailable Unavailable Lonny Ware MD Unavailable Unavailable Lonny Ware MD Unavailable Unavailable Lonny Ware MD Unavailable Unavailable Lonny Ware MD Unavailable Unavailable Lonny Ware MD Unavailable Unavailable Lonny Ware MD Unavailable Unavailable Lonny Ware MD Unavailable Unavailable Lonny Ware MD Unavailable Unavailable Lonny Ware MD Unavailable Unavailable Lonny Ware MD Unavailable Unavailable Lonny Ware MD Unavailable Unavailable Lonny Ware MD Unavailable Unavailable Lonny Ware MD Unavailable Unavailable Lonny Ware MD Unavailable Unavailable Lonny Ware MD Unavailable Unavailable Lonny Ware MD Unavailable Unavailable Lonny Ware MD Unavailable Unavailable Lonny Ware MD Unavailable Unavailable Lonny Ware MD Unavailable Unavailable Lonny Ware MD Unavailable Unavailable Lonny Ware MD Unavailable Unavailable Lonny Ware MD Unavailable Unavailable Lonny Ware MD Unavailable Unavailable Lonny Ware MD Unavailable Unavailable Lonny Ware MD Unavailable Unavailable Lonny Ware MD Unavailable Unavailable Lonny Ware MD Unavailable Unavailable ChazLonny MD Unavailable Unavailable ChazLonny rodarte MD Unavailable Unavailable ChazLonny lowry MD Unavailable Unavailable ChazLonny MD Unavailable Unavailable ChazLonny MD Unavailable Unavailable ChazLonny MD Unavailable Unavailable ChazLonny MD Unavailable Unavailable ChazLonny rodarte MD Unavailable Unavailable ChazLonny MD Unavailable Unavailable Lonny Ware MD Unavailable Unavailable ChazLonny MD Unavailable Unavailable ChazLonny MD Unavailable Unavailable ChazLonny MD Unavailable Unavailable ChazLonny rodarte MD Unavailable Unavailable ChazLonny MD Unavailable Unavailable ChazLonny MD Unavailable Unavailable ChazLonny MD Unavailable Unavailable ChazLonny rodarte MD Unavailable Unavailable ChazLonny MD Unavailable Unavailable Lonny Ware MD Unavailable Unavailable Lonny Ware MD Unavailable Unavailable Lonny Ware MD Unavailable Unavailable Lonny Ware MD Unavailable Unavailable Lonny Ware MD Unavailable Unavailable Lonny Ware MD Unavailable Unavailable Lonny Ware MD Unavailable Unavailable Lonny Ware MD Unavailable Unavailable Lonny Ware MD Unavailable Unavailable Lonny Ware MD Unavailable Unavailable Lonny Ware MD Unavailable Unavailable Lonny Ware MD Unavailable Unavailable Lonny Ware MD Unavailable Unavailable Lonny Ware MD Unavailable Unavailable Lonny Ware MD Unavailable Unavailable Lonny Ware MD Unavailable Unavailable Lonny Ware MD Unavailable Unavailable Lonny Ware MD Unavailable Unavailable Lonny Ware MD Unavailable Unavailable Lonny Ware MD Unavailable Unavailable Lonny Ware MD Unavailable Unavailable Lonny Ware MD Unavailable Unavailable Lonny Ware MD Unavailable Unavailable Lonny Ware MD Unavailable Unavailable Lonny Ware MD Unavailable Unavailable Lonny Ware MD Unavailable Unavailable Lonny Ware MD Unavailable Unavailable Lonny Ware MD Unavailable Unavailable Lonny Ware MD Unavailable Unavailable Lonny Ware MD Unavailable Unavailable Lonny Ware MD Unavailable Unavailable Mollison, Hussein Gutierrez MD Unavailable Unavailable Mollison, Hussein Gutierrez MD Unavailable Unavailable Mollison, Hussein Gutierrez MD Unavailable Unavailable Mollison, Hussein Gutierrez MD Unavailable Unavailable Mollison, Hussein Gutierrez MD Unavailable Unavailable Mollison, Hussein Gutierrez MD Unavailable Unavailable Mollison, Hussein Gutierrez MD Unavailable Unavailable Mollison, Hussein Gutierrez MD Unavailable Unavailable Mollison, Hussein Gutierrez MD Unavailable Unavailable Mollison, Hussein Gutierrez MD Unavailable Unavailable Mollison, Hussein Gutierrez MD Unavailable Unavailable Mollison, Hussein Gutierrez MD Unavailable Unavailable Mollison, Hussein Gutierrez MD Unavailable Unavailable Mollison, Hussein Gutierrez MD Unavailable Unavailable Mollison, Hussein Gutierrez MD Unavailable Unavailable Mollison, Hussein Gutierrez MD Unavailable Unavailable Mollison, Hussein Gutierrez MD Unavailable Unavailable Mollison, Hussein Gutierrez MD Unavailable Unavailable Mollison, Hussein Gutierrez MD Unavailable Unavailable Mollison, Hussein Gutierrez MD Unavailable Unavailable Mollison, Hussein Gutierrez MD Unavailable Unavailable Mollison, Hussein Gutierrez MD Unavailable Unavailable BAN, PRYJMA KRISTA MD Unavailable Unavailable BAN, PRYJMA KRISTA MD Unavailable Unavailable BAN, PRYJMA KRISTA MD Unavailable Unavailable BAN, PRYJMA KRISTA MD Unavailable Unavailable BAN, PRYJMA KRISTA MD Unavailable Unavailable BAN, PRYJMA KRISTA MD Unavailable Unavailable BAN, PRYJMA KRISTA MD Unavailable Unavailable BAN, PRYJMA KRISTA MD Unavailable Unavailable BAN, PRYJMA KRISTA MD Unavailable Unavailable BAN, PRYJMA KRISTA MD Unavailable Unavailable BAN, PRYJMA KRISTA MD Unavailable Unavailable BAN, PRYJMA KRISTA MD Unavailable Unavailable BAN, PRYJMA KRISTA MD Unavailable Unavailable BAN, PRYJMA KRISTA Unavailable Unavailable BAN, PRYJMA KRISTA MD Unavailable Unavailable BAN, PRYJMA KRISTA MD Unavailable Unavailable BAN, PRYJMA KRISTA MD Unavailable Unavailable BAN, PRYJMA KRISTA MD Unavailable Unavailable BAN, PRYJMA KRISTA MD Unavailable Unavailable BAN, PRYJMA KRISTA MD Unavailable Unavailable BAN, PRYJMA KRISTA MD Unavailable Unavailable BAN, PRYJMA KRISTA MD Unavailable Unavailable BAN, PRYJMA KRISTA MD Unavailable Unavailable BAN, PRYJMA KRISTA MD Unavailable Unavailable BAN, PRYJMA KRISTA MD Unavailable Unavailable BAN, PRYJMA KRISTA MD Unavailable Unavailable BAN, PRYJMA KRISTA MD Unavailable Unavailable ABN, PRYJMA KRISTA MD Unavailable Unavailable Tommie Spring MD Unavailable Unavailable Tommie Spring MD Unavailable Unavailable Tommie Spring MD Unavailable Unavailable Abrpamela, Tommie Esquivel MD Unavailable Unavailable Tmomie Spring MD Unavailable Unavailable Abrpamela, Tommie Esquivel MD Unavailable Unavailable Tommie Spring MD Unavailable Unavailable Tommie Spring MD Unavailable Unavailable Clementine, Tommie Esquivel MD Unavailable Unavailable Clementine, Tommie Esquivel MD Unavailable Unavailable Abrpamela, Tommie Esquivel MD Unavailable Unavailable Abrpamela, Tommie Esquivel MD Unavailable Unavailable Abrpamela, Tommie Esquivel MD Unavailable Unavailable Abrpamela, Tommie Esquivel MD Unavailable Unavailable Abrpamela, Tommie Esquivel MD Unavailable Unavailable Clementine, Tommie Esquivel MD Unavailable Unavailable Abrpamela, Tommie Esquivel MD Unavailable Unavailable Abrpamela, Tommie Esquivel MD Unavailable Unavailable Florence, M Barratt PA Unavailable Unavailable Florence, M Barratt PA Unavailable Unavailable Florence, M Barratt PA Unavailable Unavailable Florence, M Barratt PA Unavailable Unavailable Florence, M Barratt PA Unavailable Unavailable Florence, M Barratt PA Unavailable Unavailable Florence, M Barratt PA Unavailable Unavailable Florence, M Barratt PA Unavailable Unavailable Florence, M Barratt PA Unavailable Unavailable Florence, M Barratt PA Unavailable Unavailable Florence, M Barratt PA Unavailable Unavailable Florence, M Barratt PA Unavailable Unavailable Florence, M Barratt PA Unavailable Unavailable Florence, M Barratt PA Unavailable Unavailable Florence, M Barratt PA Unavailable Unavailable Florence, M Barratt PA Unavailable Unavailable Florence, M Barratt PA Unavailable Unavailable Florence, M Barratt PA Unavailable Unavailable Florence, M Barratt PA Unavailable Unavailable Florence, M Barratt PA Unavailable Unavailable Flroence, M Barratt PA Unavailable Unavailable Florence, M Barratt PA Unavailable Unavailable Florence, M Barratt PA Unavailable Unavailable Florence, M Barratt PA Unavailable Unavailable Florence, M Barratt PA Unavailable Unavailable Florence, M Barratt PA Unavailable Unavailable Florence, M Barratt PA Unavailable Unavailable AguirreLonny CATTLE KNOCKER, CNM Unavailable Unavailable Lonny Aguirre CATTLE KNOCKER, CNM Unavailable Unavailable Lonny Aguirre CATTLE KNOCKER, CNM Unavailable Unavailable AguirreLonny CATTLE KNOCKER, CNM Unavailable Unavailable Lonny Aguirre CATTLE KNOCKER, CNM Unavailable Unavailable AguirreLonny CATTLE KNOCKER, CNM Unavailable Unavailable AguirreLonny lopez CATTLE KNOCKER, CNM Unavailable Unavailable Aguirre, M Eula CATTLE KNOCKER, CNM Unavailable Unavailable Aguirre, M Eula CATTLE KNOCKER, CNM Unavailable Unavailable Aguirre, M Eula CATTLE KNOCKER, CNM Unavailable Unavailable Aguirre, M Eula CATTLE KNOCKER, CNM Unavailable Unavailable Aguirre, M Eula CATTLE KNOCKER, CNM Unavailable Unavailable Aguirre, M Eula CATTLE KNOCKER, CNM Unavailable Unavailable Aguirre, M Eula CATTLE KNOCKER, CNM Unavailable Unavailable Aguirre, M Eula CATTLE KNOCKER, CNM Unavailable Unavailable Aguirre, M Eula CATTLE KNOCKER, CNM Unavailable Unavailable Aguirre, M Eula CATTLE KNOCKER, CNM Unavailable Unavailable Aguirre, M Eula CATTLE KNOCKER, CNM Unavailable Unavailable Aguirre, M Eula CATTLE KNOCKER, CNM Unavailable Unavailable Aguirre, M Eula CATTLE KNOCKER, CNM Unavailable Unavailable Aguirre, M Eula CATTLE KNOCKER, CNM Unavailable Unavailable Aguirre, M Eula CATTLE KNOCKER, CNM Unavailable Unavailable Aguirre, M Eula CATTLE KNOCKER, CNM Unavailable Unavailable Aguirre, M Eula CATTLE KNOCKER, CNM Unavailable Unavailable Aguirre, M Eula CATTLE KNOCKER, CNM Unavailable Unavailable Aguirre, M Eula CATTLE KNOCKER, CNM Unavailable Unavailable Aguirre, M Eula CATTLE KNOCKER, CNM Unavailable Unavailable Aguirre, M Eula CATTLE KNOCKER, CNM Unavailable Unavailable Aguirre, M Eula CATTLE KNOCKER, CNM Unavailable Unavailable Aguirre, M Eula CATTLE KNOCKER, CNM Unavailable Unavailable Aguirre, M Eula CATTLE KNOCKER, CNM Unavailable Unavailable Aguirre, M Eula CATTLE KNOCKER, CNM Unavailable Unavailable Aguirre, M Eula CATTLE KNOCKER, CNM Unavailable Unavailable Dodard, Bennie DO Unavailable Unavailable Dodard, Bennie DO Unavailable Unavailable Dodard, Bennie DO Unavailable Unavailable Dodard, Bennie DO Unavailable Unavailable Dodard, Bennie DO Unavailable Unavailable Dodard, Bennie DO Unavailable Unavailable Dodard, Bennie DO Unavailable Unavailable Dodard, Bennie DO Unavailable Unavailable Dodard, Bennie DO Unavailable Unavailable Dodard, Bennie DO Unavailable Unavailable Dodard, Bennie DO Unavailable Unavailable Dodard, Bennie DO Unavailable Unavailable Dodard, Bennie DO Unavailable Unavailable Dodard, Bennie DO Unavailable Unavailable Dodard, Bennie DO Unavailable Unavailable Dodard, Bennie DO Unavailable Unavailable Dodard, Bennie DO Unavailable Unavailable Dodard, Bennie DO Unavailable Unavailable Dodard, Bennie DO Unavailable Unavailable Dodard, Bennie DO Unavailable Unavailable Dodard, Bennie DO Unavailable Unavailable Dodard, Bennie DO Unavailable Unavailable Dodard, Bennie DO Unavailable Unavailable Dodard, Bennie DO Unavailable Unavailable Dodard, Bennie DO Unavailable Unavailable Dodard, Bennie DO Unavailable Unavailable Dodard, Bennie DO Unavailable Unavailable Dodard, Bennie DO Unavailable Unavailable Dodard, Bennie DO Unavailable Unavailable Dodard, Bennie DO Unavailable Unavailable Dodard, Benine DO Unavailable Unavailable Dodard, Bennie DO Unavailable Unavailable Dodard, Bennie DO Unavailable Unavailable Dodard, Bennei DO Unavailable Unavailable Dodard, Bennie DO Unavailable Unavailable Dodard, Bennie DO Unavailable Unavailable Dodard, Bennie DO Unavailable Unavailable Dodard, Bennie DO Unavailable Unavailable Dodard, Bennie DO Unavailable Unavailable Dodard, Bennie DO Unavailable Unavailable Dodard, Bennie DO Unavailable Unavailable Dodard, Bennie DO Unavailable Unavailable Dodard, Bennie DO Unavailable Unavailable Dodard, Bennie DO Unavailable Unavailable REINDL, DARRELL TOLENTINO Unavailable Unavailable REINDL, DARRELL TOLENTINO Unavailable Unavailable REINDL, DARRELL TOLENTINO Unavailable Unavailable REINDL, DARRELL TOLENTINO Unavailable Unavailable REINDL, DARRELL TOLENTINO Unavailable Unavailable REINDL, DARRELL TOLENTINO Unavailable Unavailable REINDL, DARRELL TOLENTINO Unavailable Unavailable REINDL, DARRELL TOLENTINO Unavailable Unavailable REINDL, DARRELL TOLENTINO Unavailable Unavailable REINDL, DARRELL TOLENTINO Unavailable Unavailable REINDL, DARRELL TOLENTINO Unavailable Unavailable REINDL, DARRELL TOLENTINO Unavailable Unavailable REINDL, DARRELL TOLENTINO Unavailable Unavailable REINDL, DARRELL TOLENTINO Unavailable Unavailable REINDL, DARRELL TOLENTINO Unavailable Unavailable REINDL, DARRELL TOLENTINO Unavailable Unavailable REINDL, DARRELL TOLENTINO Unavailable Unavailable REINDL, DARRELL TOLENTINO Unavailable Unavailable REINDL, DARRELL TOLENTINO Unavailable Unavailable REINDL, DARRELL TOLENTINO Unavailable Unavailable REINDL, DARRELL TOLENTINO Unavailable Unavailable REINDL, DARRELL TOLENTINO Unavailable Unavailable REINDL, DARRELL TOLENTINO Unavailable Unavailable REINDL, DARRELL TOLENTINO Unavailable Unavailable REINDL, DARRELL TOLENTINO Unavailable Unavailable REINDL, DARRELL TOLENTINO Unavailable Unavailable REINDL, DARRELL TOLENTINO Unavailable Unavailable REINDL, DARRELL TOLENTINO Unavailable Unavailable REINDL, DARRELL TOLENTINO Unavailable Unavailable REINDL, DARRELL TOLENTINO Unavailable Unavailable REINDL, DARRELL TOLENTINO Unavailable Unavailable REINDL, DARRELL TOLENTINO Unavailable Unavailable REINDL, DARRELL TOLENTINO Unavailable Unavailable REINDL, DARRELL TOLENTINO Unavailable Unavailable REINDL, DARRELL TOLENTINO Unavailable Unavailable REINDL, DARRELL TOLENTINO Unavailable Unavailable REINDL, DARRELL TOLENTINO Unavailable Unavailable REINDL, DARRELL TOLENTINO Unavailable Unavailable REINDL, DARRELL TOLENTINO Unavailable Unavailable REINDL, DARRELL TOLENTINO Unavailable Unavailable REINDL, DARRELL TOLENTINO Unavailable Unavailable REINDL, DARRELL TOLENTINO Unavailable Unavailable REINDL, DARRELL TOLENTINO Unavailable Unavailable REINDL, DARRELL TOLENTINO Unavailable Unavailable FLINT, MEG PA Unavailable Unavailable FLINT, MEG PA Unavailable Unavailable FLINT, MEG PA Unavailable Unavailable FLINT, MEG PA Unavailable Unavailable FLINT, MEG PA Unavailable Unavailable FLINT, EMG PA Unavailable Unavailable FLINT, MEG PA Unavailable Unavailable FLINT, MEG PA Unavailable Unavailable FLINT, MEG PA Unavailable Unavailable FLINT, MEG PA Unavailable Unavailable FLINT, MEG PA Unavailable Unavailable FLINT, MEG PA Unavailable Unavailable FLINT, MEG PA Unavailable Unavailable FLINT, MEG PA Unavailable Unavailable FLINT, MEG PA Unavailable Unavailable FLINT, MEG PA Unavailable Unavailable FLINT, MEG PA Unavailable Unavailable FLINT, MEG PA Unavailable Unavailable FLINT, MEG PA Unavailable Unavailable FLINT, MEG PA Unavailable Unavailable FLINT, MEG PA Unavailable Unavailable FLINT, MEG PA Unavailable Unavailable FLINT, MEG PA Unavailable Unavailable FLINT, MEG PA Unavailable Unavailable FLINT, MEG PA Unavailable Unavailable FLINT, MEG PA Unavailable Unavailable FLINT, MEG PA Unavailable Unavailable FLINT, MEG PA Unavailable Unavailable FLINT, MEG PA Unavailable Unavailable FLINT, MEG PA Unavailable Unavailable FLINT, MEG PA Unavailable Unavailable FLINT, MEG PA Unavailable Unavailable FLINT, MEG PA Unavailable Unavailable FLINT, MEG PA Unavailable Unavailable FLINT, MEG PA Unavailable Unavailable FLINT, MEG PA Unavailable Unavailable Lonny Ware MD Unavailable Unavailable Lonny Ware MD Unavailable Unavailable Lonny Ware MD Unavailable Unavailable Lonny Ware MD Unavailable Unavailable Lonny Ware MD Unavailable Unavailable Lonny Ware MD Unavailable Unavailable Lonny Ware MD Unavailable Unavailable Lonny Ware MD Unavailable Unavailable Lonny Ware MD Unavailable Unavailable Lonny Ware MD Unavailable Unavailable Lonny Ware MD Unavailable Unavailable Lonny Ware MD Unavailable Unavailable Lonny Ware MD Unavailable Unavailable Lonny Ware MD Unavailable Unavailable Lonny Ware MD Unavailable Unavailable Lonny Ware MD Unavailable Unavailable Lonny Ware MD Unavailable Unavailable Lonny Ware MD Unavailable Unavailable Lonny Ware MD Unavailable Unavailable ChazLonny rodarte MD Unavailable Unavailable ChazLonny rodarte MD Unavailable Unavailable ChazLonny rodarte MD Unavailable Unavailable ChazLonny MD Unavailable Unavailable ChazLonny MD Unavailable Unavailable ChazLonny MD Unavailable Unavailable ChazLonny MD Unavailable Unavailable Lonny Ware MD Unavailable Unavailable ChazLonny lowry MD Unavailable Unavailable Lonny Ware MD Unavailable Unavailable ChazLonny MD Unavailable Unavailable ChazLonny MD Unavailable Unavailable ChazLonny MD Unavailable Unavailable Lonny Ware MD Unavailable Unavailable ChazLonny MD Unavailable Unavailable ChazLonny lowry MD Unavailable Unavailable ChazLonny MD Unavailable Unavailable ChazLonny lowry MD Unavailable Unavailable ChazLonny lowry MD Unavailable Unavailable Lonny Ware MD Unavailable Unavailable Lonny Ware MD Unavailable Unavailable Lonny Ware MD Unavailable Unavailable Lonny Ware MD Unavailable Unavailable Lonny Ware MD Unavailable Unavailable Lonny Ware MD Unavailable Unavailable Lonny Ware MD Unavailable Unavailable Lonny Ware MD Unavailable Unavailable Lonny Ware MD Unavailable Unavailable Lonny Ware MD Unavailable Unavailable Lonny Ware MD Unavailable Unavailable Lonny Ware MD Unavailable Unavailable Lonny Ware MD Unavailable Unavailable Lonny Ware MD Unavailable Unavailable Lonny Ware MD Unavailable Unavailable Lonny Ware MD Unavailable Unavailable Lonny Ware MD Unavailable Unavailable Lonny Ware MD Unavailable Unavailable Lonny Ware MD Unavailable Unavailable Lonny Ware MD Unavailable Unavailable Lonny Ware MD Unavailable Unavailable Lonny Ware MD Unavailable Unavailable Lonny Ware MD Unavailable Unavailable Lonny Ware MD Unavailable Unavailable Lonny Ware MD Unavailable Unavailable Lonny Ware MD Unavailable Unavailable Lonny Ware MD Unavailable Unavailable Lonny Ware MD Unavailable Unavailable Lonny Ware MD Unavailable Unavailable Lonny Ware MD Unavailable Unavailable Lonny Ware MD Unavailable Unavailable Chaz, M Zo MD Unavailable Unavailable Lonny Ware MD Unavailable Unavailable Lonny Ware MD Unavailable Unavailable Lonny Ware MD Unavailable Unavailable Lonny Ware MD Unavailable Unavailable Lonny Ware MD Unavailable Unavailable Lonny Ware MD Unavailable Unavailable Lonny Ware MD Unavailable Unavailable Chaz Lonny Zo TOLENTINO Unavailable Unavailable Re-disclosure Warning The records that you are about to access may contain information from federally-assisted alcohol or drug abuse programs. If such information is present, then the following federally mandated warning applies: This information has been disclosed to you from records protected by federal confidentiality rules (42 CFR part 2). The federal rules prohibit you from making any further disclosure of this information unless further disclosure is expressly permitted by the written consent of the person to whom it pertains or as otherwise permitted by 42 CFR part 2. A general authorization for the release of medical or other information is NOT sufficient for this purpose. The Federal rules restrict any use of the information to criminally investigate or prosecute any alcohol or drug abuse patient.The records that you are about to access may contain highly sensitive health information, the redisclosure of which is protected by Article 27-F of the [facility] Public Health law. If you continue you may have access to information: Regarding HIV / AIDS; Provided by facilities licensed or operated by the [facility] Office of Mental Health; or Provided by the [facility] Office for People With Developmental Disabilities. If such information is present, then the following [facility] mandated warning applies: This information has been disclosed to you from confidential records which are protected by state law. State law prohibits you from making any further disclosure of this information without the specific written consent of the person to whom it pertains, or as otherwise permitted by law. Any unauthorized further disclosure in violation of state law may result in a fine or group home sentence or both. A general authorization for the release of medical or other information is NOT sufficient authorization for further disc losure. Family History Family Member Name Family Member Gender Family Member Status Date o f Status Description Data Source(s) Unknown Unknown Problem [facility] ([facility]) mother age 56 and GM Unknown Unknown Problem [facility] ([facility]) Unknown Unknown Problem [facility] ([facility] mother . mgm Unknown Female Problem [facility] ([facility]) Encounters Encounter Providers Location Date Indications Data Source(s ) Outpatient Attender: Zo Martinez 10:45:00 AM EDT [facility] ([facility] ) Outpatient Attender: DARRELL Diaz/Stefanie/Evaristo/Rein dl 03/04/2020 10:30:00 AM EDT [facility] ([facility]) Outpatient Attender: Zo Martinez 02:30:00 PM EDT [facility] ([facility] ) Outpatient Referrer: Zo Ware MD 01/01/2020 10:04:00 AM EDT [facility] Outpatient Referrer: Zo Ware MD 01/01/2020 09:51:00 AM EDT [facility] Outpatient Referrer: Zo Ware MD 01/01/2020 08:23:00 AM EDT [facility] Outpatient Referrer: Zo Ware MD 12/20/2019 10:38:00 AM EDT [facility] Outpatient Referrer: Bennie Bermudez DO 12/20/2019 10:36:00 AM EDT [facility] Outpatient Attender: Zo Martinez 11:15:00 AM EDT [facility] ([facility] ) Outpatient Referrer: Bennie Bermudez DO 12/17/2019 09:22:00 AM EDT [facility] Outpatient Referrer: Bennie Bermudez DO 12/14/2019 09:14:00 AM EDT [facility] Outpatient Referrer: Bennie Bermudez DO 12/13/2019 08:08:00 AM EDT [facility] Outpatient Attender: Matt Diaz/Stefanie/Evaristo/Re indl 12/07/2019 11:10:00 AM EDT [facility] ([facility]) Outpatient Referrer: Bennie Bermudez DO 12/06/2019 11:09:00 AM EDT [facility] Outpatient Attender: Matt Diaz/[place]/Evaristo/Re indl 10/25/2019 10:30:00 AM EDT [facility] Outpatient Attender: Zo Martinez 02:45:00 PM EDT [facility] ([facility] ) Outpatient Attender: Jennifer [facility] 10:15:00 AM EST [facility] ([facility] ) Outpatient Referrer: Eula Aguirre CATTLE KNOCKER, CN 07/18/2019 04:12 :00 PM EST [facility] Outpatient Attender: Matt Diaz/[place]/Evaristo/Re indl 07/12/2019 12:30:00 PM EST [facility] ([facility], ) Outpatient Attender: Alvin Diaz/[place]/Evaristo/Re indl 06/21/2019 08:30:00 AM EST [facility] ([facility]) Outpatient Attender: KRISTA CEVALLOS MD 08/04/2015 01:53:00 PM [facility] Outpatient Attender: MEG VIEYRA 08/05/2014 04:38:00 P [facility] Immunizations Vaccine Date Status Description Data Source(s) Influenza, injectable, MDCK, preservative free, henrique valent 04/23/2020 11:08:00 AM EDT completed [facility] ([facility]) Medications Medication Brand Name Start Date Product Form Dose Route Admi nistrative Instructions Pharmacy Instructions Status Indications Reaction Description Data Source(s) Immunization Adminstration,1 Vaccine/Toxoid 04/23/2020 12:00 :00 AM EDT completed [facility] ([facility]) Medication administered onsite [facility] 04/23/2020 12:00:00 AM EDT active [facility] ([facility]) Psyllium 14.2 MG/ML Oral Suspension Metamucil 04/23/2020 12:00:00 AM E DT active [facility] ([facility]) magnesium citrate 58.2 MG/ML Oral Solution Eq Magnesium Citr ate 03/04/2020 12:00:00 AM EDT active M [facility]ENT ([facility], ) POLYETHYLENE GLYCOL 3350 142 MG/ML Oral Solution [Miralax] M iralax 03/04/2020 12:00:00 AM EDT active M [facility] ([facility], ) Suprep Bowel Prep Kit Suprep Bowel Prep Kit 03/04/2020 12:00:00 AM EDT active [facility] ([facility], ) Eszopiclone 1 MG Oral Tablet Eszopiclone 09/24/2019 12:00:00 AM EDT ORAL active [facility] ([facility]) gabapentin 100 MG Oral Capsule Gabapentin 09/24/2019 12:00:00 AM EDT ORAL active [facility] ([facility]) Eszopiclone 1 MG Oral Tablet Eszopiclone 09/21/2019 12:00:00 AM EDT completed [facility] ([facility], ) gabapentin 100 MG Oral Capsule Gabapentin 08/31/2019 12:00:00 AM EST ORAL active [facility] ([facility], ) Oxycodone Hydrochloride 5 MG Oral Tablet Oxycodone HCL 07/16/2019 12:00:00 AM EST ORAL completed [facility] ([facility], ) Acetaminophen 325 MG / Oxycodone Hydrochloride 5 MG Or al Tablet Oxycodone-Acetaminophen 07/12/2019 12:00:00 AM EST ORAL completed [facility] ([facility], ) 5-325 mg 07/11/2019 12:00:00 AM EST tablet 6 TAKE ONE TABLET BY MOUTH EVERY 6 HOURS NEEDED FOR PAIN MAXIMUM DAILY DOSE = 4 TABLETS TAKE ONE TABLET BY MOUTH EVERY 6 HOURS NEEDED FOR PAIN MAXIMUM DAILY DOSE = 4 TABLETS SOLD: 07/11/2019 [facility] Insurance Providers Payer name Policy type / Coverage type Policy ID Covered constitution party ID Covered constitution party's relationship to kim Policy Kim Plan Information [facility] [id number] SP [id number] SELF PAY ONLY [id number] UMR O [id number] S [id number] [employer] [id number] S [id number] [employer] (Old) Medigap Part B [id number] Self [id number] Umr (New [place]) Commercial [id number] Self [id number] [employer] [id number] SP [id number] UMR O [id number] S [id number] UMR O UNAVAILABLE S UNAVAILA BLE Umr [employer] Ppo Commercial [id number] Self [id number] [employer] Commercial [id number] Self [id number] [employer] (HMO) [id number] Se lf [id number] [employer] PPO O [id number] S [id number] [employer] (HMO) [id number] Se lf [id number] [employer] P[employer] Commercial [id number] Self [id number] [employer] Ppo Commercial [id number] Self [id number] [place] Commercial Self [employer]OM[employer] [id number] SP [id number] [employer] O [id number] S [id number] Surgeries/Procedures Procedure Description Date Indications Data Source(s) Mammogram 04/10/2020 12:00:00 AM EDT M EDENT ([facility]) X-Ray Wrist Complete 10/25/2019 12:00:00 AM EDT [facility] ([facility], ) RADEX WRIST COMPLETE MINIMUM 3 VIEWS 10/25/2019 12:00: 00 AM EDT [facility] ([facility]) RADEX WRIST 2 VIEWS 08/31/2019 12:00:00 AM EST [facility] ([facility]) RADEX WRIST 2 VIEWS 08/31/2019 12:00:00 AM EST [facility] ([facility]) RADEX WRIST 2 VIEWS 08/14/2019 12:00:00 AM EST [facility] ([facility]) RADEX WRIST 2 VIEWS 08/14/2019 12:00:00 AM EST [facility] ([facility]) OPTX DSTL RADL I-ARTIC FX/EPIPHYSL SEP 3 FRAG 07/16/19 12:00:00 AM EST [facility] ([facility], ) Apply Cast Short Arm 07/12/2019 12:00:00 AM EST [facility] ([facility]) Results ID Date Data Source [id number] 08/03/2020 09:00:00 AM EST [facility] Name Value Range Interpretation Code Description Data Angelica rce(s) Supporting Document(s) SARS coronavirus 2 RNA Not Detected [facility] [place] This lab was ordered by [facility] and reported by [facility]. ID Date Data Source [id number] 07/15/2020 01:25:00 PM EST [facility] ([facility]) Name Value Range Interpretation Code Description Data Angelica rce(s) Supporting Document(s) Laboratory test finding (navigational concept) Laboratory test result [facility] ([facility]) Test: COVID-19 Nasal/Naspharynx Result: NOT DETECTED Reference Units: Not detected Note: Please consider re-collection of a new specimen, if clinically indicated. Note: The COVID-19 assay is under Emergency Use Authorization(EUA) by the U.S. Food and Drug Administration. [facility] is designated as a high complexity laboratory by the Clinical Laboratory Improvement Amendments of 1988(CLIA) and is qualified to perform this test. ASSAY INFORMATION: Real Time RT-PCR ID Date Data Source [id number] 06/25/2020 09:30:00 AM [facility]) Name Value Range Interpretation Code Description Data Angelica rce(s) Supporting Document(s) Laboratory test finding (navigational concept) [facility] Test: COVID-19 Nasal/Naspharynx Result: NOT DETECTED Reference Units: Not detected Note: Please consider re-collection of a new specimen, if clinically indicated. Note: The COVID-19 assay is under Emergency Use Authorization(EUA) by the U.S. Food and Drug Administration. [facility] is designated as a high complexity laboratory by the Clinical Laboratory Improvement Amendments of 1988(CLIA) and is qualified to perform this test. ASSAY INFORMATION: Real Time RT-PCR ID Date Data Source [id number] 04/01/2020 12:00:00 AM EDT [facility] Lacy Barber Cnm Patient Name: CLEOPATRA SOW [facility] 1965[facility] [address] Date of Exam: 04/01/2020PH#: Fax: [phone] EXAM: MAMMO UNI DIAGNOSTIC INCLUD CAD AND ULTRASOUND BREAST UNI LIMITEDCLINICAL INFORMATION: Diagnostic right breast.Prior exams were reviewed. Prior screening examination 03/04/2020 showed apotential isaías-density in the upper/outer quadrant of the right breast forwhich diagnostic digital magnified spot compression views were obtained inthe CC and MLO projections along with diagnostic ultrasonography.The tiny nodular density seen persists on the MLO view but is not seendefinitively on the CC view.Diagnostic ultrasonography of the right breast upper/outer quadrant shows atiny hypoechoic, nearly anechoic structure but with low-level internalechos ad without posterior wall enhancement or increased throughtransmission. The nodule is round measuring 3 mm. Shear wave elastographywas performed on the nodule and showing low kPa values.IMPRESSION:BI-RADS Category 4 - Suspicious Finding(s). There is a tiny nodule in theright breast, as described above, which measures 3 mm. Mammographically,this represents a change compared to the prior exams. The finding will beconsidered suspicious. Ultrasonographic biopsy is recommended to ensurecomplete evaluation.LAZARA Montero/Marnie you for referring PERI SOW to our office. Electronically Signed - RAUL RENEE DO 04/03/20 8:59 Name Value Range Interpretation Code Description Data Angelica rce(s) Supporting Document(s) ID Date Data Source [id number] 04/01/2020 12:00:00 AM EDT [facility] Lacy Barber Cnm Patient Name: PERI [id number] [facility] Date [place] : 1965[place] [address] Date of Exam: 04/01/2020PH#: Fax: [phone] EXAM: MAMMO UNI DIAGNOSTIC INCLUD CAD AND ULTRASOUND BREAST UNI LIMITEDCLINICAL INFORMATION: Diagnostic right breast.Prior exams were reviewed. Prior screening examination 03/04/2020 showed apotential isaías-density in the upper/outer quadrant of the right breast forwhich diagnostic digital magnified spot compression views were obtained inthe CC and MLO projections along with diagnostic ultrasonography.The tiny nodular density seen persists on the MLO view but is not seendefinitively on the CC view.Diagnostic ultrasonography of the right breast upper/outer quadrant shows atiny hypoechoic, nearly anechoic structure but with low-level internalechos ad without posterior wall enhancement or increased throughtransmission. The nodule is round measuring 3 mm. Shear wave elastographywas performed on the nodule and showing low kPa values.IMPRESSION:BI-RADS Category 4 - Suspicious Finding(s). There is a tiny nodule in theright breast, as described above, which measures 3 mm. Mammographically,this represents a change compared to the prior exams. The finding will beconsidered suspicious. Ultrasonographic biopsy is recommended to ensurecomplete evaluation.LAZARA Montero/Marnie barron for referring PERI SOW to our office. Electronically Signed - RAUL RENEE DO 04/03/20 8:59 Name Value Range Interpretation Code Description Data Angelica rce(s) Supporting Document(s) ID Date Data Source [id number] 03/04/2020 12:00:00 AM EDT [facility] Lacy Barber Cnm Patient Name: PERI [id number] [facility] Date of : 1965[place] [address] Date of Exam: 03/04/2020PH#: Fax: [phone] EXAM: MAMMO SCREENING WITH CADCLINICAL INFORMATION: Screening.Based on the personal and family history information your patient suppliedat the time of imaging, her lifetime risk of breast cancer estimated by theTyrer-Cuzick model is 18.9%. Given that this patient has less than 20% TCrisk score, no further medical management is currently recommended at thistime.The patient has previously received genetic testing.Digital screening (2D) mammography was performed bilaterally in the CC andMLO projections. Additionally, breast tomosynthesis (3D mammography) wasperformed bilaterally in the CC and MLO projections. Today's exam wascompared to the prior exam(s).By history, the patient has no complaints of a palpable breast abnormalityor other significant breast complaints.The patient states last clinical breast exam was in January of 2020.The breasts are unchanged in size and shape.In the right breast upper/outer quadrant, there is a potential isaías-density. No other suspicious features are seen in either breast. The breastparenchyma is dense and heterogeneous which decreases the sensitivity ofthe mammogram in detecting cancer.The Volpara volumetric breast density category is C, the breasts areheterogeneously dense which may obscure small masses.IMPRESSION:BI-RADS Category 0 - Incomplete: Needs additional imaging evaluation.Potential isaías-density upper/outer quadrant of the right breast and forwhich diagnostic digital magnified spot compression views are recommendedin the CC and MLO projections along with diagnostic ultrasonography ifnecessary.Our office will attempt to contact the patient for additional imaging.This mammogram was read with the assistance of [employer], an FDAapproved computer aided detection system for mammography.Negative x-ray reports should not delay surgical consultation if a dominantor clinically suspicious mass is present.Not all breast cancers can be identified by mammography. Therefore, werecommend that you continue to perform regular breast self-examination andphysical examination and then promptly contact your physician of anyconcerns or changes.Adenosis and dense breasts may obscure an underlying neoplasm.LAZARA Montero/Marnie you for referring PERI SOW to our office. Electronically Signed - RAUL RENEE DO 03/05/20 15:05 Name Value Range Interpretation Code Description Data Angelica rce(s) Supporting Document(s) ID Date Data Source [id number] 01/22/2020 03:17:00 PM EDT [facility] Name Value Range Interpretation Code Description Data Angelica rce(s) Supporting Document(s) Lipoprotein lipase [Enzymatic activity/volume] in Serum or P lasma 356 U/L 73-393 [facility] ([facility]) ID Date Data Source [id number] 01/04/2020 10:23:00 AM EDT [facility] ([facility]) Name Value Range Interpretation Code Description Data Angelica rce(s) Supporting Document(s) Tissue transglutaminase IgA Ab [Units/volume] in Serum Labor atory test result 0-3 [facility] ([facility]) Negative 0 - 3 Weak Positive 4 - 10 Positive >10 . Tissue Transglutaminase (tTG) has been identified as the endomysial antigen. Studies have demonstr- ated that endomysial IgA antibodies have over 99% specificity for gluten sensitive enteropathy. Performed at: RN - [facility] [address] [id number] Membership Solicitor: Leny Sierra MD, Phone: [phone] IgA [Mass/volume] in Serum or Plasma 128.0 mg/dL 70-400 [facility] ([facility]) ID Date Data Source [id number] 01/01/2020 12:00:00 AM EDT [facility] Zo Ware MD Patient Name: PERI [id number] [facility] Date of : Floor Date of Exam: 01/01/2019[place] [address]YW#: Fax: [phone] EXAM: CT ABDOMEN & PELVIS WITHOUT&WITH CONTRASTCLINICAL INFORMATION: Right upper quadrant pain.Low dose [address] scanning of the abdomen and pelvis wasobtained before and after the administration of in travenous contrast using3 mm increments and reconstructed in both sagittal and coronal scan planes. Immediate and delayed post contrast enhanced imaging was obtained throughthe abdomen. 75 cc of Optiray 350 was administered intravenously.Comparison, multiples, the latest 03/26/2015.The lung bases are clear.The pre-contrast enhanced portion of the examination shows hepatic andsplenic densities to be within normal limits. In the interpolar region ofthe right kidney, there is a tiny 2 mm sized non-obstructing calculus.This is unchanged from the prior exam. There is no choleliths. There areno urinary bladder calcifications.The contrast enhanced portion of the examination shows the liver,gallbladder, spleen, pancreas, adrenal glands and kidneys to be essentiallyunchanged. There are tiny bilateral renal cortical cysts, status quo. Theabdominal aorta and paraaortic regions are again seen to be within normallimits. The intraabdominal and intrapelvic bowel loops and theirmesenteries are within normal limits and essentially unchanged. There isno free fluid or free air in the abdomen or pelvis. There is no evidenceof an intraabdominal or intrapelvic mass or adenopathy.Bone window technique throug hout the examination shows the osseousstructures to be within normal limits and essentially unchanged.IMPRESSION:There is no evidence of acute intraabdominal or intrapelvic disease. Therehas been no significant change compared to the prior exam with findings asdescribed above.Accredited by the [employer] in [place].LAZARA Montero/Marnie you for referring PERI SOW to our office. Electronically Signed - RAUL RENEE DO 01/02/20 15:39 Name Value Range Interpretation Code Description Data Angelica rce(s) Supporting Document(s) ID Date Data Source [id number] 12/19/2019 01:30:00 PM EDT [facility] ([facility]) Name Value Range Interpretation Code Description Data [facility] rce(s) Supporting Document(s) Gastrointestinal (GI) Panel Laboratory test result [facility] ([facility]) This Gastrointestinal PCR Panel detects the following bacteria, parasites and viruses: [...] V). NEGATIVE by MULTIPLEXED NUCLEIC ACID PCR ID Date Data Source [id number] 12/19/2019 11:51:00 AM EDT [facility]) Name Value Range Interpretation Code Description Data Angelica rce(s) Supporting Document(s) Lipoprotein lipase [Enzymatic activity/volume] in Serum or P lasma 448 U/L 73-393 [facility] [facility] C reactive protein [Mass/volume] in Serum or Plasma by High sensitivity method Laboratory test result 0.00-0.30 [facility] [place] [facility]) ID Date Data Source [id number] 12/19[facility]2019 [facility]50[facility] Name Value Range Interpretation Code Description Data Angelica rce(s) Supporting Document(s) Thyrotropin [Units/volume] in Serum or Plasma by Detec tion limit <= 0.05 mIU/L 1.40 uIU/mL 0.36-3.74 [facility] ([facility] [place] [facility] ) ID Date Data Source [id number] 12/19/2019 11:50:00 AM EDT [facility] ([facility]) Name Value Range Interpretation Code Description Data Angelica rce(s) Supporting Document(s) Creatinine 0.8 mg/dL 0.6-1.3 [facility] [place] [facility]) Urea nitrogen [Mass/volume] in Serum or Plasma 22 mg/dL 7-18 [facility]) Glucose [Mass/volume] in Serum or Plasma 91 mg/dL 74-99 [facility] ([facility]) 100-125 mg/dL PRE-DIABETES/FASTING >126 mg/dL DIABETES/FASTING Potassium [Moles/volume] in Serum or Plasma 4.2 meq/L 3.5-5.1 [facility] ([facility]) Chloride [Moles/volume] in Serum or Plasma 105 meq/L 98-107 [facility] ([facility]) Sodium [Moles/volume] in Serum or Plasma 142 meq/L 136-145 [facility] ([facility]) Total Bilirubin 0.6 mg/dL 0.2-1.0 [facility] ([facility]) Alkaline phosphatase isoenzyme [Units/volume] in Serum or Pl asma 69 mg/dL 46-116 [facility] ([facility]) Calcium [Mass/volume] in Serum or Plasma 9.1 mg/dL 8.5-10.1 [facility] ([facility]) Carbon dioxide, total [Moles/volume] in Serum or Plasma 29 meq/L 21 -32 [facility] ([facility]) Albumin [Mass/volume] in Serum or Plasma 4.2 g/dL 3.4-5.0 [facility] ([facility]) Alanine aminotransferase [Enzymatic activity/volume] in Seru m or Plasma 19 U/L 12-78 [facility] ([facility]) Aspartate aminotransferase [Enzymatic activity/volume] in Serum or Plasma 12 U/L 15-37 [facility] ([facility] ) Proteinase 3 Ab [Units/volume] in Serum 7.4 g/dL 6.4-8.2 [facility] ([facility]) A/G Ratio 1.31 CALC 1.00-1.90 [facility] [facility] Glomerular filtration rate/1.73 sq M pre dicted among non-blacks [Volume Rate/Area] in Serum or Plasma by Creatinine-based formula (MDRD) Laboratory test result [facility] ([facility] ) Glomerular filtration rate/1.73 sq M pre dicted among blacks [Volume Rate/Area] in Serum or Plasma by Creatinine-based formula (MDRD) Laboratory test result [facility] ([facility]) <content>CHRONIC KIDNEY DISEASE STAGING PER NKF</content>
<content></content>
<content>STAGE I & II GFR >= 60 NORMAL TO MILDLY DECREASED</content>
<content>STAGE III GFR 30-59 MODERATELY DECREASED</content>
<content>STAGE IV GFR 15-29 SEVERELY DECREASED</content>
<content>STAGE V GFR <15 VERY LITTLE GFR LEFT</content>
<content>ESRD GFR <15 ON PATIENTS TRANSPORTER</content>
<content></content> ID Date Data Source [id number] 12/19/2019 11:50:00 AM EDT [facility] ([facility]) Name Value Range Interpretation Code Description Data Angelica rce(s) Supporting Document(s) Erythrocyte sedimentation rate by Westergren method 7 mm/hr 0-15 [facility] ([facility]) Magnesium 2.2 mg/dL 1.8-2.4 [facility] ([facility]) ID Date Data Source [id number] 12/19/2019 11:50:00 AM EDT [facility] ([facility]) Name Value Range Interpretation Code Description Data Angelica rce(s) Supporting Document(s) Leukocytes [#/volume] in Blood by Automated count 4.2 x10*3/UL 4.1-10 .9 [facility] ([place] [facility]) Erythrocytes [#/volume] in Blood by Automated count 4.49 x10*6/UL 4.2 0-6.30 [facility] ([place] [facility]) Hemoglobin [Mass/volume] in Blood 13.6 g/dL 12.0-18.0 [facility] ([place] [facility]) Hematocrit [Volume Fraction] of Blood by Automated count 39.6 % 3 7.0-51.0 [facility] ([place] [facility]) MCV 88.3 fL 80.0-97.0 [facility] ([facility]) MCH 30.4 pg 26.0-32.0 [facility] ([facility]) MCHC 34.4 g/dL 31.0-38.0 [facility] ([facility]) MPV 9.3 FL 7.8-11.0 [facility] ([facility]) Erythrocyte distribution width [Ratio] by Automated count 12.6 % 11.6-13.7 [facility] ([place] [facility] Platelets [#/volume] in Blood by Automated count 241 x10*3/UL 140-440 [facility] ([facility]) Lymph % 41.0 % 10.0-58.5 [facility] ([facility]) Lymph # 1.7 x10*3/UL 0.6-4.1 [facility] ([facility]) Neut % 49.4 % 37.0-92.0 [facility] [place] [facility]) Mid % 9.6 % 1.7-9.3 [facility] [place] [facility]) Mid # 0.4 x10*3/UL 0.1-0.6 [facility] ([facility]) Neut # 2.1 x10*3/UL 2.0-7.8 [facility] ([facility]) ID Date Data Source [id number] 12/17/2019 12:00:00 AM EDT [facility] Bennie Bermudez DO Patient Name: CLEOPATRA SOW [facility] Date of : 1965[place] [address] Date of Exam: 12/17/2019PH#: Fax: [phone] EXAM: US PELVIC COMPLETECLINICAL INFORMATION: Bloating and pain with post menopausal bleeding.The patient has an IUD.Transvesical and transvaginal imaging.The uterus measures 6.1 x 3.2 x 4.2 cm. The parenchymal echo pattern iswithin normal limits. Limited evaluation of the endometrial echocomplexshows a maximal thickness of 2 mm. There is a small specular reflectionwithin the endometrial cavity consistent with the patient's IUD.Only the right ovary was visualized and only transvaginally. It measured1.5 x .9 x 1.2 cm and appeared to be within normal limits with an RI of.59.The urinary bladder measures 4 x 5 x 8 cm.IMPRESSION:Limited but otherwise unremarkable pelvic ultrasound as described above.Accredited by the [employer] in GynecologicalUltrasound.LAZARA Montero/Marnie you for referring PERI SOW to our office. Electronically Signed - RAUL RENEE DO 12/17/19 17:04 Name Value Range Interpretation Code Description Data Angelica rce(s) Supporting Document(s) ID Date Data Source [id number] 12/17/2019 12:00:00 AM EDT [facility] Bennie Bermudez DO Patient Name: PERI [id number] [facility] Date of : 1965[place] [address] Date of Exam: 12/17/2019#: Fax: [phone] EXAM: US PELVIC COMPLETECLINICAL INFORMATION: Bloating and pain with post menopausal bleeding.The patient has an IUD.Transvesical and transvaginal imaging.The uterus measures 6.1 x 3.2 x 4.2 cm. The parenchymal echo pattern iswithin normal limits. Limited evaluation of the endometrial echocomplexshows a maximal thickness of 2 mm. There is a small specular reflectionwithin the endometrial cavity consistent with the patient's IUD.Only the right ovary was visualized and only transvaginally. It measured1.5 x .9 x 1.2 cm and appeared to be within normal limits with an RI of.59.The urinary bladder measures 4 x 5 x 8 cm.IMPRESSION:Limited but otherwise unremarkable pelvic ultrasound as described above.Accredited by the [employer] in GynecologicalUltrasound.LAZARA Montero/Marnie barron for referring PERI SOW to our office. Electronically Signed - RAUL RENEE DO 12/17/19 17:04 Name Value Range Interpretation Code Description Data Angelica rce(s) Supporting Document(s) ID Date Data Source [id number] 07/13/2019 09:49:00 AM EST [facility] Name Value Range Interpretation Code Description Data Angelica rce(s) Supporting Document(s) Laboratory test finding (navigational concept) Laboratory test result [facility] ([facility]) Procedure Vital Signs ID Date Data Source [id number] Name Value Range Interpretation Code Description Data Source(s) Body mass index (BMI) [Ratio] 23.6 kg/m2 23.6 k g/m2 [facility] ([facility]) Body weight 128.00 [lb_av] 128.00 [lb_av] [facility] Body height 61.75 [in_i] 61.75 [in_i] [facility] ([facility]) 5'1.75" Heart rate 64 /min 64 /min [facility] ([facility]) Diastolic blood pressure 72 mm[Hg] 72 mm[Hg] [facility] ([facility]) Systolic blood pressure 110 mm[Hg] 110 mm[Hg] [facility] ([facility]) Body weight 58.514 kg 58.514 kg [facility] ([facility]) Body mass index (BMI) [Ratio] 23.6 kg/m2 23.6 k g/m2 [facility] ([facility]) Body weight 129.00 [lb_av] 129.00 [lb_av] [facility] Body height 62 [in_i] 62 [in_i] [facility] ([facility]) 5'2" Diastolic blood pressure 77 mm[Hg] 77 mm[Hg] [facility] ([facility]) Systolic blood pressure 164 mm[Hg] 164 mm[Hg] [facility] ([facility]) Body mass index (BMI) [Ratio] 24.7 kg/m2 24.7 k g/m2 [facility] ([facility]) Oxygen saturation in Arterial blood by Pulse oximetry 95 % 95 % [facility] ([facility]) Body weight 134.00 [lb_av] 134.00 [lb_av] [facility] T ([facility]) Body height 61.75 [in_i] 61.75 [in_i] [facility] ([facility]) 5'1.75" Heart rate 67 /min 67 /min [facility] Diastolic blood pressure 68 mm[Hg] 68 mm[Hg] [facility] ([facility]) Systolic blood pressure 120 mm[Hg] 120 mm[Hg] [facility] ([facility]) Body mass index (BMI) [Ratio] 25.1 kg/m2 25.1 k g/m2 [facility] ([facility]) Body weight 136.00 [lb_av] 136.00 [lb_av] [facility] T ([facility]) Body height 61.75 [in_i] 61.75 [in_i] [facility] ([facility]) 5'1.75" Heart rate 66 /min 66 /min [facility] ([facility]) Diastolic blood pressure 76 mm[Hg] 76 mm[Hg] [facility] ([facility]) Systolic blood pressure 110 mm[Hg] 110 mm[Hg] [facility] ([facility]) Body mass index (BMI) [Ratio] 25.4 kg/m2 25.4 k g/m2 [facility] ([facility]) Body weight 138.00 [lb_av] 138.00 [lb_av] [facility] Body height 61.75 [in_i] 61.75 [in_i] [facility] ([facility]) 5'1.75" Heart rate 68 /min 68 /min [facility] ([facility] Diastolic blood pressure 64 mm[Hg] 64 mm[Hg] [facility] ([facility]) RT Arm Systolic blood pressure 126 mm[Hg] 126 mm[Hg] [facility] RT Arm Body temperature 96.4 [degF] 96.4 [degF] [facility] ([facility] ) Body weight 59.875 kg 59.875 kg [facility] ([facility]) Body mass index (BMI) [Ratio] 24.1 kg/m2 24.1 k g/m2 [facility] ([facility]) Body weight 132.00 [lb_av] 132.00 [lb_av] [facility] Body height 62 [in_i] 62 [in_i] [facility] ([facility]) 5'2" Body temperature 99.0 [degF] 99.0 [degF] [facility] ([facility]) Body weight 60.782 kg 60.782 kg [facility] ([facility]) Body mass index (BMI) [Ratio] 24.5 kg/m2 24.5 k g/m2 [facility] ([facility]) Body weight 134.00 [lb_av] 134.00 [lb_av] [facility] Body height 62 [in_i] 62 [in_i] [facility] ([facility]) 5'2"
--- NOTE | 2020-08-08 09:27 | ROOR ---
Patient Name: Rae Sanchez Procedure Date: 08/08/2020 8:48 AM Date of : 1965 Age: 55 Room: [id number] Gender: Female Note Status: Finalized Procedure: Colonoscopy Indications: Family history of colon cancer in a first-degree relative before age 60 years, Change in bowel habits Providers: Telly IBRAHIM MD Referring MD: Zo SANCHEZ MD Requesting Provider: Medicines: Monitored Anesthesia Care Complications: No immediate complications. Procedure: Pre-Anesthesia Assessment: - The heart rate, respiratory rate, oxygen saturations, blood pressure, adequacy of pulmonary ventilation, and response to care were monitored throughout the procedure. The Colonoscope was introduced through the anus and advanced to the terminal ileum, with identification of the appendiceal orifice and IC valve. The colonoscopy was performed without difficulty. The patient tolerated the procedure well. The quality of the bowel preparation was good. Findings: The perianal and digital rectal examinations were normal. The colon (entire examined portion) was moderately redundant. Two flat polyps were found in the sigmoid colon and ascending colon. The polyps were small in size. These polyps were removed with a cold snare. Resection and retrieval were complete. Small Internal Hemorrhoids. The exam was otherwise without abnormality on direct and retroflexion views. Impression: - Redundant colon. - Two small polyps in the sigmoid colon and in the ascending colon, removed with a cold snare. Resected and retrieved. - Small Internal Hemorrhoids. - The examination was otherwise normal on direct and retroflexion views. Recommendation: - Repeat colonoscopy in 5 years for surveillance. Procedure Code(s): --- Professional --- 52870, Colonoscopy, flexible; with removal of tumor(s), polyp(s), or other lesion(s) by snare technique Diagnosis Code(s): --- Professional --- K63.5, Polyp of colon Z80.0, Family history of malignant neoplasm of digestive organs R19.4, Change in bowel habit Q43.8, Other specified congenital malformations of intestine CPT copyright 2019 [employer]. All rights reserved. The codes documented in this report are preliminary and upon software design analyst review may be revised to meet current compliance requirements. Telly Ibrahim MD Telly IBRAHIM MD 08/08/2020 9:26:24 AM Electronically signed by Telly IBRAHIM MD Number of Addenda: 0 Note Initiated On: 08/08/2020 8:48 AM Estimated Blood Loss: Estimated blood loss: none.
[2020-08-08 09:46] VITALS: BP 132/62
== END 2020-08-08 09:47 | disposition home or self-care (01) ==
LOC: M OPP 07:25
PROVIDERS: ATTEND Internal Medicine Gastroenterology
DX: R19.4 Change in bowel habit (principal); Z80.0 Family history of malignant neoplasm of digestive organs; K63.5 Polyp of colon; Q43.8 Other specified congenital malformations of intestine; K64.8 Other hemorrhoids; K58.9 Irritable bowel syndrome, unspecified; F41.9 Anxiety disorder, unspecified; G43.909 Migraine, unspecified, not intractable, without status migrainosus; Z79.899 Other long term (current) drug therapy; Z80.3 Family history of malignant neoplasm of breast; Z80.49 Family history of malignant neoplasm of other genital organs; Z80.1 Family history of malignant neoplasm of trachea, bronchus and lung

== ENCOUNTER 2022-07-03 07:28 | Emergency (ER) | payer OTHER ==
[~2022-07-03] VITALS: Ht 157.5 cm; Wt 62.0 kg
[~2022-07-03 07:28] MED LIST changes: -ASPI-286 PO; -LIDOCAINE 2% 100MG/5ML SDV (FOR ANES.) As Ordered ONE; +SM C81CH2 PO; -propofoL 200 MG/20 ML VIAL As Ordered ONE
[2022-07-03] MEDS ORDERED: ISOVUE-370 76% 100ML VIAL As Ordered ONE (07:55)
[2022-07-03 08:14] LABS: BASO # 0.1 10^3/uL (0.0-0.2); BASO % 1.5 % (0.0-1.0); EOS # 0.1 10^3/uL (0.0-0.5); EOS % 1.2 % (0.0-3.0); HEMATOCRIT 41.3 % (36.0-47.0); HEMOGLOBIN 13.6 g/dl (12.0-15.5); LYMPH # 1.2 10^3/uL (1.5-5.0); LYMPH % 28.5 % (24.0-44.0); MEAN CORPUSCULAR HEMOGLOBIN 30.5 pg (27.0-33.0); MEAN CORPUSCULAR HGB CONC 32.9 g/dl (32.0-36.5); MEAN CORPUSCULAR VOLUME 92.6 fl (80.0-96.0); MONO # 0.3 10^3/uL (0.0-0.8); MONO % 7.9 % (2.0-8.0); NEUTROPHILS # 2.4 10^3/uL (1.5-8.5); NEUTROPHILS % 60.7 % (36.0-66.0); PLATELET COUNT, AUTOMATED 240 10^3/uL (150-450); RED BLOOD COUNT 4.46 10^6/uL (4.00-5.40)
[2022-07-03 08:32] LABS: INR 0.92; PROTHROMBIN TIME 12.6 SECONDS (12.5-14.5)
[2022-07-03 08:33] LABS: PARTIAL THROMBOPLASTIN TIME 26.4 SECONDS (24.8-34.2)
[2022-07-03 08:37] LABS: CK-MB VALUE MASS < 1.0 NG/ML (<3.6)
[2022-07-03 08:39] LABS: BLOOD UREA NITROGEN 20 MG/DL (9-23); CALCIUM LEVEL 9.3 MG/DL (8.5-10.1); CARBON DIOXIDE LEVEL 25 MMOL/L (20-31); CHLORIDE LEVEL 106 MMOL/L (98-107); CPK CREATINE PHOSPHOKINASE 59 U/L (34-145); CREATININE FOR GFR 0.67 MG/DL (0.55-1.30); GLOMERULAR FILTRATION RATE > 60.0 (>51); GLUCOSE, FASTING 123 MG/DL (60-100); MB/CK RELATIVE INDEX 1.69 (< OR =4); POTASSIUM SERUM 4.3 MMOL/L (3.5-5.1); SODIUM LEVEL 141 MMOL/L (136-145)
[2022-07-03] MEDS ORDERED: diphenhydrAMINE 50MG/ML VIAL IV STA (08:41)
[2022-07-03] MEDS ORDERED: METOCLOPRAMIDE INJ 10MG/2ML VIAL IV ONE (08:45)
[2022-07-03] MEDS ORDERED: ACETAMINOPHEN 500 MG TAB PO ONE (09:50)
[2022-07-03 10:08] LABS: CK-MB VALUE MASS < 1.0 NG/ML (<3.6)
[2022-07-03 10:09] LABS: CPK CREATINE PHOSPHOKINASE 63 U/L (34-145); MB/CK RELATIVE INDEX 1.58 (< OR =4)
[2022-07-03 10:20] LABS: RSV AMPLIFICATION NEGATIVE (NEGATIVE)
[2022-07-03 12:45] VITALS: BP 93/58
== END 2022-07-03 13:12 | disposition home or self-care (01) ==
LOC: EDBD 07:28 → M ED 07:28
DX: G43.809 Other migraine, not intractable, without status migrainosus (principal)
CPT/HCPCS: 70450; 70496; 70498; 70544; 70551; 71045; 80047; 80048; 82550; 82553; 84484; 85025; 85610; 85730; 86850; 86900; 86901; 87631; 93005; 93041; 94760; 96374; 96375; 99285; J1200; J2765

== ENCOUNTER → 2022-07-19 | Outpatient (CLI) | payer OTHER | LOC: M PLALAB 15:08 | PROVIDERS: ATTEND Internal Medicine | DX: G43.909 Migraine, unspecified, not intractable, without status migrainosus (principal) ==

== ENCOUNTER → 2022-07-27 | Outpatient (REF) | payer OTHER | LOC: M LAB REF 12:06 | PROVIDERS: ATTEND Internal Medicine | DX: G43.909 Migraine, unspecified, not intractable, without status migrainosus (principal); R93.89 Abnormal findings on diagnostic imaging of other specified body structures ==

== ENCOUNTER → 2022-10-11 | Outpatient (CLI) | payer OTHER | LOC: M RAD 10:03 | PROVIDERS: ATTEND Internal Medicine | DX: R93.89 Abnormal findings on diagnostic imaging of other specified body structures (principal) ==

== ENCOUNTER → 2023-01-04 | Outpatient (CLI) | payer OTHER | LOC: M PLAIMG 11:48 → M PLALAB 11:48 | PROVIDERS: ATTEND Physician Assistant Surgical | DX: M25.531 Pain in right wrist (principal) ==

== ENCOUNTER → 2023-08-17 | Outpatient (CLI) | payer OTHER | LOC: M WUC 09:23 | PROVIDERS: ATTEND Internal Medicine | DX: M54.30 Sciatica, unspecified side (principal); M47.816 Spondylosis without myelopathy or radiculopathy, lumbar region ==

== ENCOUNTER → 2025-07-09 | Outpatient (CLI) | payer OTHER ==
[~2025-07-09] MED LIST changes: +KETO-204 PO; +PRED20TA PO
== END ==
LOC: M RAD 09:07
DX: R68.84 Jaw pain (principal)

== ENCOUNTER 2025-07-10 11:50 | Emergency (ER) | payer OTHER ==
[~2025-07-10] VITALS: Ht 157.5 cm; Wt 63.8 kg
[~2025-07-10 11:50] MED LIST changes: -KETO-204 PO; -PRED20TA PO
[2025-07-10 13:52] LABS: PLATELET COUNT, AUTOMATED 256 10^3/uL (150-450)
[2025-07-10 14:13] LABS: CALCIUM LEVEL 9.7 MG/DL (8.5-10.1); CARBON DIOXIDE LEVEL 32 MMOL/L (20-31); CHLORIDE LEVEL 104 MMOL/L (98-107); CREATININE FOR GFR 0.74 MG/DL (0.55-1.30); GLOMERULAR FILTRATION RATE > 90.0 (>51); POTASSIUM SERUM 4.8 MMOL/L (3.5-5.1); SODIUM LEVEL 143 MMOL/L (136-145)
[2025-07-10] MEDS ORDERED: ISOVUE-370 76% 100 ML VIAL As Ordered ONE (15:56)
[2025-07-10] MEDS: KETOROLAC 30 MG/ML 1 ML VIAL IV ONE (18:50)
[2025-07-10 19:00] VITALS: BP 110/63; TEMP 97.9; O2SAT 99
[2025-07-10] MEDS ORDERED: PRED20TA PO (19:00)
[2025-07-10] MEDS ORDERED: KETO-204 PO (19:00)
== END 2025-07-10 19:17 | disposition home or self-care (01) ==
LOC: M ED 11:50
DX: M54.2 Cervicalgia (principal); R00.1 Bradycardia, unspecified; Z79.2 Long term (current) use of antibiotics; Z79.899 Other long term (current) drug therapy; Z79.810 Long term (current) use of selective estrogen receptor modulators (SERMs); Z79.52 Long term (current) use of systemic steroids
CPT/HCPCS: 70491; 80047; 80048; 85027; 93005; 96374; 99285; J1885; Q9967